=== PATIENT | female | born 2000 | race Caucasian/White ===

== ENCOUNTER 2021-02-03 14:27 | Emergency (ER) | payer OTHER, SELFPAY ==
[2021-02-03 14:40] VITALS: BP 127/72; PULSE 85; RESP 16; TEMP 37.2; O2SAT 99
--- NOTE | 2021-02-03 15:10 | ED.GENADULT ---
HPI - General Adult General Chief complaint: Dental/Oral Stated complaint: tooth pain Source: patient Mode of arrival: ambulatory Limitations: no limitations History of Present Illness HPI narrative: Patient is a 20-year-old female who is 8 weeks that presents to the urgent care via POV for evaluation of dental pain located surrounding left wisdom tooth that has been present for 2 days. Additionally, she reports swelling and erythema and left-sided facial swelling. Pain is intermittent and sharp/throbbing in nature. Tylenol initially provided relief and now is providing none. Nothing worsens symptoms. Patient does not have a dentist although reached out to TRANSMISSIONS SYSTEMS OPERATOR who recommended antibiotics prompting today's visit. Related Data Home Medications Medication Instructions Recorded Confirmed No Home Medications 02/03/21 02/03/21 Allergies Allergy/AdvReac Type Severity Reaction Status Date / Time No Known Allergies Allergy Verified 02/03/21 14:34 Review of Systems Review of Systems: Denies poor dentition, abscess, and drug use. Pertinent negatives fever, chills, sweats, poor p.o. intake, change in appetite, recent weight loss, malaise, headache, dizziness, skin color changes, lymphadenopathy, ear pain/drainage, nasal drainage/congestion, hearing loss, tinnitus, vertigo, inability to swallow, drooling, sore throat, nausea, vomiting, sob, chest pain, and heart palpitations/murmurs. PMFSH Comments I have reviewed and agree with the patient's past medical, surgical, social, and family hx as documented by the RN. There is no relevant family history pertinent to the presenting complaint. Exam Narrative: GENERAL: Well-appearing, well-nourished, and in no acute distress. HEAD: Normocephalic, atraumatic. No sinus tenderness or facial swelling. NECK: Supple. No lymphadenopathy or nuchal rigidity. CHEST: Lung sounds are clear to auscultation in bilateral lung schroeder. No respiratory distress. No evidence of cough upon examination. HEART: Regular rate and rhythm. No murmurs, gallops, or rubs heard. Normal peripheral pulses. Eyes: PERRLA and EOMI. Bilateral conjunctiva with erythema. Normal sclera, eyelids, and eyelashes. Periorbital areas without swelling, erythema, and warmth. No drainage appreciated. ENT: Ears: TMs pearly ghotra. No bulging, erythema, or fluid appreciated. External auditory canals are Nose: Nares clear, no rhinorrhea or epistaxis. No swelling or erythema. Throat/Mouth: No evidence of swelling, erythema, exudate, peritonsillar mass, lesions, ulcers or drooling. Uvula is midline and without erythema and swelling. Mucous membranes moist. Voice and breath odor normal. Moderate erythema and swelling noted tooth number 17. no evidence of dental abscess, dental carries, avulsion, or fractured teeth. EXTREMITIES: Normal range of motion. No edema. SKIN: Warm, dry, no rash. No skin color changes. Excellent turgor. NEURO: No focal deficits. Alert and oriented x3. Course Vital Signs Vital signs: Vital Signs Temperature 99.0 F 02/03/21 14:40 Pulse Rate 85 02/03/21 14:40 Respiratory Rate 16 02/03/21 14:40 Blood Pressure 127/72 02/03/21 14:40 Pulse Oximetry 99 02/03/21 14:40 Temperature 99.0 F 02/03/21 14:40 Pulse Rate 85 02/03/21 14:40 Respiratory Rate 16 02/03/21 14:40 Blood Pressure 127/72 02/03/21 14:40 Pulse Oximetry 99 02/03/21 14:40 Reviewed Medical Decision Making Differential Diagnosis Differential Diagnosis: Abscess, cellulitis, dental caries Medical Records Medical records reviewed: Yes I reviewed the external patient's medical records. Vital Signs Vital Signs: Vital Signs Temperature 99.0 F 02/03/21 14:40 Pulse Rate 85 02/03/21 14:40 Respiratory Rate 16 02/03/21 14:40 Blood Pressure 127/72 02/03/21 14:40 Pulse Oximetry 99 02/03/21 14:40 Temperature 99.0 F 02/03/21 14:40 Pulse Rate 85 02/03/21 14:40 Respiratory Rate 16
== END 2021-02-03 15:26 | disposition home or self-care (01) ==
PROVIDERS: Emergency Provider Nurse Practitioner Family
DX: K04.7 Periapical abscess without sinus (principal)
CPT/HCPCS: 99203; G0463

== ENCOUNTER 2022-01-25 15:23 | Emergency (ER) | payer OTHER, SELFPAY ==
--- NOTE | 2022-01-25 15:25 | ED.DENTAL ---
HPI - Dental/Oral General Chief complaint: Ear Stated complaint: Dental Pain Time Seen by Provider: 01/25/22 15:40 Source: patient Mode of arrival: ambulatory Limitations: no limitations History of Present Illness HPI Narrative: Ms. Lyon is a 21-year-old female patient presenting to clinic today with complaints of dental pain. She reports she is having pain to the right ear that is radiating down into the right jaw. Symptoms have been going on for 1-2 days. She thinks she may have a dental infection. Related Data Allergies Allergy/AdvReac Type Severity Reaction Status Date / Time No Known Allergies Allergy Verified 01/25/22 15:38 Review of Systems Review of Systems: Pertinent positives per HPI. Patient denies any fever, chills, rash, headache, visual changes, dizziness, cough, runny nose, sore throat, shortness of breath, chest pain, palpitations, nausea, vomiting, diarrhea, constipation, abdominal pain, or any urinary issues. PMFSH Comments At the time of my signature, I reviewed and agree with the nursing past medical, surgical, social, and family history. There is no relevant family history pertinent to the patient complaint. Exam Narrative: General: Well-developed, well nourished, in no apparent distress Head: Normocephalic, atraumatic Eyes: Pupils equally round and reactive to light bilaterally, EOM intact, sclera and conjunctive clear, no discharge, lids normal Ears: left TM intact and clear, right TM intact, bulging, red, with blood an and external ear canal swelling noted in the right ear. left ear canal clear, no drainage, grossly hearing normal. Nose: Nares patent, clear nasal discharge, no inflammation, no sinus tenderness. Mouth: Oropharynx without lesions or masses, good dentition, MMM. Neck: Supple, trachea midline, no enlargement of anterior or posterior cervical nodes, no thyroid masses or goiter palpable. Cardio: Regular rate and rhythm, s1 and s2 normal, no murmur appreciated. Resp: Clear to auscultation bilaterally anteriorly and posteriorly, no rhonchi, rales, wheezing or rubs Course Course Emergency Course: Portions of this record may have been created with voice recognition software. Level of Care: Express Care Visit Vital Signs Vital signs: Vital Signs Temperature 36.8 C 01/25/22 15:40 Pulse Rate 85 01/25/22 15:40 Respiratory Rate 16 01/25/22 15:40 Blood Pressure 152/82 H 01/25/22 15:40 Pulse Oximetry 100 01/25/22 15:40 Oxygen Delivery Room Air 01/25/22 15:40 Temperature 36.8 C 01/25/22 15:40 Pulse Rate 85 01/25/22 15:40 Respiratory Rate 16 01/25/22 15:40 Blood Pressure 152/82 H 01/25/22 15:40 Pulse Oximetry 100 01/25/22 15:40 Oxygen Delivery Room Air 01/25/22 15:40 Vital signs reviewed MDM - Dental/Oral MDM Narrative Medical decision making narrative: at the time of visit patient is resting comfortably on the exam table. I suspect that the patient has otitis media, otitis externa the right ear. Will send a prescription for amoxicillin and ofloxacin ear drops. Supportive measures were discussed with the patient she voiced understanding discharge instructions and agrees to treatment plan. Differential Diagnosis Differential diagnosis: Likely other ( Otitis media, otitis externa, eustachian tube dysfunction, dental infection) Discharge Plan Discharge Clinical Impression: Otitis media, Otitis externa Patient Disposition: Home, Self-Care Condition: Stable Instructions: Antibiotic Form, Ear Infection (ED) Additional Instructions: Take any prescribed medications only as directed- amoxicillin and ofloxacin Tylenol/motrin as needed for pain May use heating pad to alleviate pain Avoid bottle propping if ear infection in . If you get recurrent ear infections it may be warranted to follow up with ENT. Follow up with your PCP in 3-5 days if symptoms persist. Prescriptions: New amoxicillin 875 mg t
[2022-01-25 15:40] VITALS: BP 152/82; PULSE 85; RESP 16; TEMP 36.8; O2SAT 100
== END 2022-01-25 15:49 | disposition home or self-care (01) ==
PROVIDERS: Emergency Provider Nurse Practitioner Family
DX: H66.91 Otitis media, unspecified, right ear (principal); H60.91 Unspecified otitis externa, right ear
CPT/HCPCS: 99213; G0463

== ENCOUNTER 2022-06-02 14:49 | Emergency (ER) | payer OTHER, SELFPAY ==
--- NOTE | ~2022-06-02 | XR_ITS ---
EXAMINATION: XR abdomen/kub 1V INDICATION: Right flank pain TECHNIQUE: Supine views of the abdomen were obtained on 2 radiographs. COMPARISON: None FINDINGS: Bowel contents project over the kidneys limiting sensitivity for renal stones. No urolithia sis is identified. A moderate volume of colonic stool is present. IMPRESSION: 1. No radiographic correlate for the patient's symptoms. Reviewed, dictated and finalized at location F.
[2022-06-02 14:54] VITALS: BP 129/84; PULSE 83; RESP 16; TEMP 36.9; O2SAT 100
--- NOTE | 2022-06-02 15:03 | ED.FEMALEGU ---
HPI - Female Genitourinary General Chief complaint: Back Pain/Injury Stated complaint: lower back pain Time Seen by Provider: 06/02/22 15:04 Source: patient and RN notes reviewed Mode of arrival: ambulatory Limitations: no limitations History of Present Illness HPI Narrative: 22-year-old female presents concern for right flank pain that started today. Reports it started suddenly, it of the flows. Reports right now is a 2/10. Reports that it is worse at 7/10. Reports the pain up some flows without exacerbating or relieving factors. She denies dysuria, frequency, urgency, abdominal pain. Reports an episode of nausea today. MD elicited complaint: flank pain Related Data Home Medications Medication Instructions Recorded Confirmed 06/02/22 Allergies Allergy/AdvReac Type Severity Reaction Status Date / Time No Known Allergies Allergy Verified 06/02/22 14:59 Review of Systems Review of Systems: CONSTITUTIONAL: Denies malaise, chills, sweats, or fever. CARDIOVASCULAR: Denies chest pain, palpitations, or edema. RESPIRATORY: Denies cough or dyspnea. GASTROINTESTINAL: Denies abdominal pain, nausea, vomiting, diarrhea GENITOURINARY: Denies dysuria, frequency, urgency, suprapubic pressure. Denies flank pain or hematuria. Reports right flank pain SKIN: Denies rash or itching. MUSCULOSKELETAL: Denies back pain or myalgia. All systems reviewed & are unremarkable except as noted in HPI and below PMFSH Comments At time of signature, agree with nursing past medical, surgical, social and family history. There is no relevant family history pertinent to the presenting complaint Exam Narrative: GENERAL: Well-appearing, well-nourished, and in no acute distress. HEAD: Normocephalic. EYES: PERRLA, conjunctivae clear. NECK: Supple. No lymphadenopathy CHEST: Clear to auscultation. No respiratory distress. HEART: Regular rate and rhythm. ABDOMEN: Soft, nontender upon palpation, nondistended, normal active bowel sounds, no palpable or pulsatile masses, no guarding. No CVA tenderness SKIN: Warm, dry, no rash. NEURO: Alert and oriented x3. PSYCH: Normal mood and affect Course Course Emergency Course: Discussed x-ray findings with patient, discussed possible diagnosis including kidney stones, will treat the patient presumptively for kidney stone pending urology follow-up Patient is aware of, understands and agrees to treatment plan. Anticipatory guidance given. Patient agrees to follow-up as directed and is aware of reasons to seek care at the emergency department. Portions of this record may have been created with voice recognition software Level of Care: Express Care Visit Vital Signs Vital signs: Vital Signs Temperature 98.4 F 06/02/22 14:54 Pulse Rate 83 06/02/22 14:54 Respiratory Rate 16 06/02/22 14:54 Blood Pressure 129/84 06/02/22 14:54 Pulse Oximetry 100 06/02/22 14:54 Oxygen Delivery Room Air 06/02/22 14:54 Temperature 98.4 F 06/02/22 14:54 Pulse Rate 83 06/02/22 14:54 Respiratory Rate 16 06/02/22 14:54 Blood Pressure 129/84 06/02/22 14:54 Pulse Oximetry 100 06/02/22 14:54 Oxygen Delivery Room Air 06/02/22 14:54 Reviewed. MDM - Female Genitourinary MDM Narrative Medical decision making narrative: Exam findings and UA show no acute concerns or changes; patient is non-toxic appearing and is in no distress. Patient is appropriate for outpatient treatment and follow-up. Differential Diagnosis Differential diagnosis: Likely urinary tract infection, cystitis and other (Nephrolithiasis, pyelonephritis) Imaging Data My impression: Images reviewed, interpreted by radiologist, agree, see report. Radiologist's impression: EXAMINATION: XR abdomen/kub 1V INDICATION: Right flank pain TECHNIQUE: Supine views of the abdomen were obtained on 2 radiographs. COMPARISON: None FINDINGS: Bowel contents project over the kidneys limiting sensitivity for renal stones.
== END 2022-06-02 15:48 | disposition home or self-care (01) ==
PROVIDERS: Emergency Provider Nurse Practitioner
DX: R10.9 Unspecified abdominal pain (principal)
CPT/HCPCS: 74018; 81003; 87086; 99213; G0463

== ENCOUNTER 2022-08-15 09:01 | Emergency (ER) | payer BC, OTHER, SELFPAY ==
--- NOTE | 2022-08-15 09:03 | ED.DENTAL ---
HPI - Dental/Oral General Chief complaint: Dental/Oral Stated complaint: Dental abscess; headache Time Seen by Provider: 08/15/22 09:03 Source: patient Mode of arrival: ambulatory Limitations: no limitations History of Present Illness HPI Narrative: Destiney is a 22-year-old female patient presenting to the clinic today with complaints of possible dental abscess and sinus pressure x 2-3 days She reports she is having a foul taste in her mouth and some dental pain to the left upper posterior molars/wisdom teeth. No known fever or chills. Related Data Allergies Allergy/AdvReac Type Severity Reaction Status Date / Time No Known Allergies Allergy Verified 08/15/22 09:10 Review of Systems Review of Systems: Pertinent positives per HPI. Patient denies any fever, chills, rash, visual changes, dizziness, cough, runny nose, sore throat, shortness of breath, chest pain, palpitations, nausea, vomiting, diarrhea, constipation, abdominal pain, or any urinary issues. PMFSH Comments At the time of my signature, I reviewed and agree with the nursing past medical, surgical, social, and family history. There is no relevant family history pertinent to the patient complaint. Exam Narrative: General: Well-developed, well nourished, in no apparent distress Head: Normocephalic, atraumatic Eyes: Pupils equally round and reactive to light bilaterally, EOM intact, sclera and conjunctive clear, no discharge, lids normal Ears: TMs intact and clear, ear canals clear, no drainage, grossly hearing normal. Nose: Nares patent, no discharge, no inflammation, no sinus tenderness. Mouth: Oropharynx without lesions or masses, poor dentition, MMM. Tender to palpation to the right upper posterior molar-possibly impacted wisdom tooth Neck: Supple, trachea midline, no enlargement of anterior or posterior cervical nodes, no thyroid masses or goiter palpable. Cardio: Regular rate and rhythm, s1 and s2 normal, no murmur appreciated. Resp: Clear to auscultation bilaterally anteriorly and posteriorly, no rhonchi, rales, wheezing or rubs Course Course Emergency Course: Portions of this record may have been created with voice recognition software. Level of Care: Express Care Visit Vital Signs Vital signs: Vital signs reviewed MDM - Dental/Oral MDM Narrative Medical decision making narrative: At the time of visit patient is resting comfortably on the exam table. Will place the patient on Augmentin. Suspicious for impacted wisdom tooth with infection. Supportive measures were discussed with the patient she voiced understanding of discharge instructions and agrees to treatment plan Differential Diagnosis Differential diagnosis: Likely gingival abscess, dental caries, toothache, dental abscess and fracture of tooth Discharge Plan Discharge Clinical Impression: Toothache Patient Disposition: Home, Self-Care Condition: Stable Instructions: Antibiotic Form, Toothache (ED) Additional Instructions: Take Augmentin as prescribed Follow-up with your dentist as soon as possible May take Tylenol/Motrin as needed for pain or fever Follow-up with your PCP as needed Prescriptions: New amoxicillin-pot clavulanate 875-125 mg tablet 1 tablet PO Q12H 10 Days Qty: 20 0RF Follow-up/Referrals: PHYSICIAN,AGRICULTURAL SERVICE WORKER [Primary Care Provider] - Time of Disposition: 09:17 Quality NIHSS Nursing Documentation ED NIHSS nursing documentation: reviewed/agree
[2022-08-15 09:11] VITALS: BP 118/58; PULSE 103; RESP 14; TEMP 36.9; O2SAT 100
== END 2022-08-15 09:22 | disposition home or self-care (01) ==
LOC: EXPCOLL 09:06
PROVIDERS: Emergency Provider Nurse Practitioner Family
DX: K02.9 Dental caries, unspecified (principal)
CPT/HCPCS: 99213; G0463

== ENCOUNTER 2022-12-03 13:06 | Emergency (ER) | payer OTHER, SELFPAY ==
--- NOTE | 2022-12-03 13:08 | ED.DENTAL ---
HPI - Dental/Oral General Chief complaint: Dental/Oral Stated complaint: Dental Pain Time Seen by Provider: 12/03/22 13:28 Mode of arrival: ambulatory Limitations: no limitations History of Present Illness HPI Narrative: 22 year old female presents with concern for left lower dental pain that started 2 days ago. She denies any injury to the tooth, jaw swelling, cheek swelling. Denies fever trouble swallowing. She is 11 weeks . She has been taking Tylenol Complaint: tooth pain Related Data Allergies Allergy/AdvReac Type Severity Reaction Status Date / Time No Known Allergies Allergy Verified 12/03/22 13:13 Review of Systems Review of Systems: CONSTITUTIONAL: Denies malaise, chills, sweats, or fever. EYES: Denies visual changes ENT: Denies rhinorrhea, congestion, sinus pain, otalgia or sore throat. Reports left lower dental pain CARDIOVASCULAR: Denies chest pain, palpitations RESPIRATORY: Denies cough or dyspnea. SKIN: Denies rash or itching. MUSCULOSKELETAL: Denies myalgia. NEUROLOGIC: Denies numbness, weakness, or headache. All systems reviewed & are unremarkable except as noted in HPI and below PMFSH Comments At time of signature, agree with nursing past medical, surgical, social and family history. There is no relevant family history pertinent to the presenting complaint Exam Narrative: GENERAL: Well-appearing, well-nourished, and in no acute distress. HEAD: Normocephalic, atraumatic. EYES: PERRLA, sclera clear ENT: Nares clear, turbinates pink, no rhinorrhea or epistaxis. Mucous membranes moist. TM pearly cruz with sharp light reflex bilaterally; no tragal tenderness. Oropharynx without erythema or lesions. Tonsils not enlarged and without exudate. No missing teeth, broken teeth. Aleyda noted tooth #19 NECK: Supple. No lymphadenopathy. CHEST: No respiratory distress. Speaks in full sentences. HEART: Regular rate and rhythm. SKIN: Warm, dry, no visible rash. NEURO: Alert and oriented x3. PSYCH: Normal mood and affect Course Course Emergency Course: Patient is aware of diagnosis, understands and agrees to treatment plan. Anticipatory guidance given. Patient agrees to follow-up as directed and is aware of reasons to seek care at the emergency department. Portions of this record may have been created with voice recognition software Level of Care: Express Care Visit Vital Signs Vital signs: Reviewed. [facility] - Dental/Oral MDM Narrative Medical decision making narrative: Patients pain and complaint coupled with physical findings are consistant with dentalgia. There are no focal signs of space occupying lesions that are compromising to the airway; no dysphagia, odynophagia, dysphonia, or dyspnea. No uvular deviation or soft palate edema. Patient is non-toxic appearing. The floor of the mouth is soft with no signs of Eric's Angina; no induration below mandible, no neck pain. Patient is without trismus or drooling and able to swallow secretions. Patient is felt appropriate for discharge home with dental follow up. Differential Diagnosis Differential diagnosis: Likely gingival abscess, dental caries, toothache, dental abscess, fracture of tooth and aphthous ulcer Critical Care Time Critical Care Time Critical Care Time: No Discharge Plan Discharge Clinical Impression: Toothache Patient Disposition: Home, Self-Care Condition: Stable Instructions: Antibiotic Form, Toothache (ED) Additional Instructions: Take antibiotic as directed Avoid temperature extremes May apply heat or ice to the face Gentle brushing and flossing Alternate Tylenol and ibuprofen as needed for pain Follow-up with the dentist as soon as possible Prescriptions: New amoxicillin-pot clavulanate 875-125 mg tablet 1 tablet PO Q12H 10 Days Qty: 20 0RF Follow-up/Referrals: UNKNOWN,DOCTOR [Non-Staff] - Time of Disposition: 13:34
[2022-12-03 13:14] VITALS: BP 137/81; PULSE 98; RESP 18; TEMP 37.2; O2SAT 100
== END 2022-12-03 13:38 | disposition home or self-care (01) ==
PROVIDERS: Emergency Provider Nurse Practitioner
DX: K08.89 Other specified disorders of teeth and supporting structures (principal)
CPT/HCPCS: 99213; G0463

== ENCOUNTER 2023-03-25 09:56 | Emergency (ER) | payer OTHER, SELFPAY ==
[2023-03-25 10:03] VITALS: BP 121/61; PULSE 92; RESP 20; TEMP 37.2; O2SAT 100
[2023-03-25 10:09] VITALS: BP 121/61; PULSE 92; RESP 20; TEMP 37.2; O2SAT 100
--- NOTE | 2023-03-25 10:12 | ECG_ITS ---
Measurements Intervals [place] Rate: 84 P: 41 KS: 143 QRS: 15 QRSD: 87 T: 31 QT: 349 QTc: 415 Interpretive Statements SINUS RHYTHM NORMAL ECG NO PREVIOUS ECG AVAILABLE FOR COMPARISON Electronically Signed On 03-25-2023 15:12:57 [employer]OCK BROKER SUPERVISOR by Shahab Gray D.O.
--- NOTE | 2023-03-25 10:19 | ED.GENADULT ---
HPI - General Adult General Chief complaint: Chest Pain Stated complaint: Chest Wall Pain Time Seen by Provider: 03/25/23 10:19 Source: patient Mode of arrival: ambulatory Limitations: no limitations History of Present Illness HPI narrative: 23 yo F presents with c/o pain to sternum starting last night. worse with movement and on palpation. Denies injury. Pain was intermittent when first starting but now constant. Approx. 26 wks . Has had indigestion in the past and states does not feel it is reflux. Has not taken any OTC meds to treat pain. No SOB, difficulty breathing. Denies dizziness, lightheaded, fatigue, URI symptoms, N/V. Describes as ache . No stabbing, sharp or pressure. All systems reviewed and negative except as noted above. Related Data Allergies Allergy/AdvReac Type Severity Reaction Status Date / Time No Known Allergies Allergy Verified 03/25/23 10:07 Review of Systems Review of Systems: CONSTITUTIONAL: Denies fever, chills, or sweats. EYES: Denies visual changes, redness, or discharge. ENT: Denies rhinorrhea, congestion, sore throat, or otalgia. CARDIOVASCULAR: Denies chest pain, palpitations, or edema. RESPIRATORY: Denies cough or dyspnea. GASTROINTESTINAL: Denies abdominal pain, nausea, vomiting, or diarrhea. GENITOURINARY: Denies dysuria or hematuria. SKIN: Denies rash or itching. MUSCULOSKELETAL: Denies back pain, joint pain, or myalgia. Reports musculoskeletal chest pain, sternum NEUROLOGIC: Denies headache, numbness, or weakness. PSYCHIATRIC: Denies anxiety or depression. All other systems reviewed are negative, except as documented in HPI. PMFSH Comments At time of signature, agree with nursing past medical, surgical, social and family history. There is no relevant family history pertinent to the presenting complaint. Exam Narrative: GENERAL: This is a well-nourished, well-developed patient, in no apparent distress. HEAD: normocephalic, atraumatic. EYES: PERRL. Sclera clear/white. Vision is grossly intact. EARS: External ears normal NOSE: External nose normal NECK: Neck supple, non-tender without lymphadenopathy, masses or thyromegaly. CARDIOVASCULAR: Regular rate and rhythm without murmurs, gallops, or rubs. RESPIRATORY: Clear to auscultation. Breath sounds equal bilaterally. No wheezes, rales, or rhonchi. MUSCULOSKELETAL: Tenderness on palpation to sternum and upper aspect of chest. No bruising, swelling noted. SKIN: warm, Dry, intact with no suspicious lesions or rash, good texture and turgor. NEURO: awake, alert, and oriented to person, place and time. There were no obvious focal neurologic abnormalities. EXTREMITIES: No joint tenderness, effusion, or edema noted. Course Course Level of Care: Express Care Visit Vital Signs Vital signs: Vital Signs Temperature 37.2 C 03/25/23 10:03 Pulse Rate 92 03/25/23 10:03 Respiratory Rate 03/25/23 10:03 Blood Pressure 121/61 03/25/23 10:03 Pulse Oximetry 100 03/25/23 10:03 Oxygen Delivery Room Air 03/25/23 10:03 Temperature 37.2 C 03/25/23 10:09 Pulse Rate 92 03/25/23 10:09 Respiratory Rate 03/25/23 10:09 Blood Pressure 121/61 03/25/23 10:09 Pulse Oximetry 100 03/25/23 10:09 Oxygen Delivery Room Air 03/25/23 10:10 Reviewed Medical Decision Making MDM Narrative Medical decision making narrative: EKG normal sinus rhythm. HR 84, no ST changes lungs clear to auscultation. HR and EKG normal. musculoskeletal chest tenderness on palpation, worse with movement. recommend tylenol and follow up with diagnostic tech. Offer to transfer patient to ear today to further evaluate with labs but patient did not feel was necessary. Stated that she needed to go home and take care for 2 younger children. Instructed to go to ER for shortness of breath, worsening of pain Patient is aware of diagnosis, understands and agrees to treatment plan. Anticipatory guidance given. Patient agrees to follow
== END 2023-03-25 10:31 | disposition home or self-care (01) ==
PROVIDERS: Emergency Provider Nurse Practitioner Family; PCP Internal Medicine Cardiovascular Disease
DX: O99.891 Other specified diseases and conditions complicating pregnancy (principal); Z3A.26 26 weeks gestation of pregnancy; R07.89 Other chest pain
CPT/HCPCS: 93005; 99213; G0463

== ENCOUNTER 2024-01-06 17:24 | Emergency (ER) | payer OTHER, SELFPAY ==
[2024-01-06 17:37] VITALS: BP 139/78; PULSE 96; RESP 16; TEMP 36.9; O2SAT 99
--- NOTE | 2024-01-06 17:51 | ED.GENADULT ---
HPI - General Adult General Chief complaint: Ear Stated complaint: right side ear pain,jaw,neck Source: patient Mode of arrival: ambulatory Limitations: no limitations History of Present Illness HPI narrative: Patient presents for evaluation of right ear pain. She indicates she has some chronic muffled hearing on the right secondary to recurrent ear infections. She has noted some bloody and thick yellow drainage from her right ear for the past week. She has been applying ice to the right ear in taking Tylenol and ibuprofen for symptoms. No fever, chills, nausea, vomiting. She is currently Related Data Allergies Allergy/AdvReac Type Severity Reaction Status Date / Time No Known Allergies Allergy Verified 01/06/24 17:26 Review of Systems Review of Systems: CONSTITUTIONAL: Denies fever, chills, or sweats. EYES: Denies visual changes, redness, or discharge. ENT: Reports right ear pain with drainage CARDIOVASCULAR: Denies chest pain, palpitations, or edema. RESPIRATORY: Denies cough or dyspnea. GASTROINTESTINAL: Denies abdominal pain, nausea, vomiting, or diarrhea. GENITOURINARY: Denies dysuria or hematuria. SKIN: Denies rash or itching. MUSCULOSKELETAL: Denies back pain, joint pain, or myalgia. NEUROLOGIC: Denies headache, numbness, dizziness, or weakness. PSYCHIATRIC: Denies anxiety or depression. PMFSH Past Medical History Medical History No pertinent past medical history Surgical History Surgical History No pertinent past surgical history Family History Family History Mother Family history non-contributory Social History Social History Substance use: never Living arrangements: with family Gender identity (if verbalized by the patient): Female Sexual Orientation (if Verbalized by the Patient): Straight or Heterosexual Exam Narrative: GENERAL: Well-appearing, well-nourished, and in no acute distress. HEAD: Normocephalic, atraumatic. EYES: PERRLA and EOMI. ENT: Nares clear, no rhinorrhea or epistaxis. Mucous membranes moist. Oropharynx without tonsillar hypertrophy exudate or other lesions. right tympanic membrane is erythematous and there is purulent drainage in the right ear canal NECK: Supple. No adenopathy or masses. No carotid bruits or JVD CHEST: Clear to auscultation. No respiratory distress. No wheezes rales or rhonchi HEART: Regular rate and rhythm. No murmur heard. Normal peripheral pulses. ABDOMEN: Soft, nontender, nondistended, normal active bowel sounds. EXTREMITIES: Normal range of motion. No edema. SKIN: Warm, dry, no rash. NEURO: No focal deficits. Alert and oriented x3. PSYCH: Normal mood and affect. Course Course Emergency Course: This is a 23-year-old female who presented for evaluation right ear pain and drainage. She has evidence of otitis media on exam. I suspect she has rupture of tympanic membrane. Will discharge with Augmentin and ofloxacin. Advise she monitor her while . Follow-up with primary provider. Go to the ER for worsening symptoms. Patient in agreement with plan of care. Level of Care: Express Care Visit Vital Signs Vital signs: Vital Signs Temperature 36.9 C 01/06/24 17:37 Pulse Rate 96 01/06/24 17:37 Respiratory Rate 16 01/06/24 17:37 Blood Pressure 139/78 01/06/24 17:37 Pulse Oximetry 99 01/06/24 17:37 Oxygen Delivery Room Air 01/06/24 17:37 Temperature 36.9 C 01/06/24 17:37 Pulse Rate 96 01/06/24 17:37 Respiratory Rate 16 01/06/24 17:37 Blood Pressure 139/78 01/06/24 17:37 Pulse Oximetry 99 01/06/24 17:37 Oxygen Delivery Room Air 01/06/24 17:37 Medical Decision Making Vital Signs Vital Signs: Vital Signs Temperature 36.9 C 01/06/24 17:37 Pulse Rate 96 01/06/24 17:37 Respiratory Rate 16 01/06/24 17:37 Blood Pressure 139/78 01/06/24 17:37 Pulse Oximetry 99 01/06/24 17:37 Oxygen Delivery Room Air 01/06/24 17:37 Temperature 36.9 C 01/06/24 17:37 Pulse Rate 96 01/06/24 17:37 Respiratory Rate 16 01/06/24 17:37 Blood Pressure 139/78 01/06/24 17:37 Pulse Oximetry 99 01/06/24 17:37 Oxygen Delivery Room Air 01/06/24 17:37 Discharge Plan Discharge Clinical Impression: Otitis media Patient Disposition: Home, Self-Care Condition: Stable Instructions: Antibiotic Form, Ear Infection (GEN) Patient Language: Pashto Prescriptions: New amoxicillin-pot clavulanate 875-125 mg tablet 1 tablet PO Q12H Qty: 20 0RF ofloxacin 0.3 % drops 10 drp RIGHT EAR DAILY 7 Days Qty: 5 0RF Follow-up/Referrals: Honorio Vickers MD [Physician] - Time of Disposition: 17:50
== END 2024-01-06 17:55 | disposition home or self-care (01) ==
PROVIDERS: Emergency Provider Nurse Practitioner
DX: H66.91 Otitis media, unspecified, right ear (principal)
CPT/HCPCS: 99213; G0463

== ENCOUNTER 2024-04-12 15:03 | Emergency (ER) | payer OTHER, SELFPAY ==
[2024-04-12 15:29] VITALS: BP 137/109; PULSE 83; RESP 16; TEMP 36.9; O2SAT 99
--- NOTE | 2024-04-12 16:53 | ED.URI ---
HPI - URI/Sore Throat General Chief Complaint: Upper Respiratory Infection Stated Complaint: swelling on tonsil left side,sore throat Time Seen by Provider: 04/12/24 16:53 Source: patient, RN notes reviewed and old records reviewed Mode of arrival: ambulatory Limitations: no limitations History of Present Illness HPI Narrative: Patient presents with complaints of sore throat for about 1 week. She reports that she has had a little bit of postnasal drainage. She denies any fever, chills, sweats. She has no difficulty eating or drinking. She denies any injury or trauma. She is not in any distress, she is managing: Secretions, no drooling or stridor Related Data Home Medications ?Medication ?Instructions ?Recorded ?Confirmed ?Last Taken ?Type No Home Medications 04/12/24 04/12/24 Unknown History Allergies Allergy/AdvReac Type Severity Reaction Status Date / Time No Known Allergies Allergy Verified 04/12/24 16:54 Review of Systems Review of Systems: All systems reviewed & are unremarkable except as noted in HPI and below Constitutional: Constitutional: Reports no additional constitutional complaints ENT: Reports system reviewed and no additional complaints, except as documented and Reports sore throat Cardiovascular: Cardiovascular: Reports no additional cardiovascular complaints Respiratory: Respiratory: Reports no additional respiratory complaints Gastrointestinal: Gastrointestinal: Reports no additional gastrointestinal complaints [facility] Past Medical History Medical History No pertinent past medical history Surgical History Surgical History No pertinent past surgical history Family History Family History Mother Family history non-contributory Social History Social History Substance use: never Living arrangements: with family Gender identity (if verbalized by the patient): Female Sexual Orientation (if Verbalized by the Patient): Straight or Heterosexual Comments At the time of my signature, I reviewed and agree with the nursing past medical, surgical, social, and family history. There is no relevant family history pertinent to the patient complaint. Exam Const: General: cooperative, no acute distress, alert and awake Orientation/consciousness: oriented to person, oriented to place and oriented to time HENMT: Head: normal to inspection Ears: TM's normal bilaterally Mouth: Yes moist mucous membranes Throat: posterior oropharynx abnormal erythema Resp: Effort & Inspection: normal respiratory effort and able to speak in complete sentences Auscultation: clear to auscultation bilaterally, no crackles, no rales, no rhonchi and no wheezes Cardio: Palpation: normal PMI Rate: regular rate Rhythm: regular rhythm Heart sounds: S1 normal heart sound present and S2 normal heart sound present Neuro: General: oriented to person, oriented to place and oriented to time Cranial nerves: Yes CN's II-XII intact bilaterally Psych: Appearance: grossly normal Thought process: Normal thought process present Insight: Good insight present (Psych) Judgement: Good judgement present (Psych) Course Course Level of Care: Express Care Visit Vital Signs Vital signs: Vital Signs Temperature 98.5 F 04/12/24 15:29 Pulse Rate 83 04/12/24 15:29 Respiratory Rate 16 04/12/24 15:29 Blood Pressure 137/109 H 04/12/24 15:29 Pulse Oximetry 99 04/12/24 15:29 Oxygen Delivery Room Air 04/12/24 15:29 Temperature 98.5 F 04/12/24 15:29 Pulse Rate 83 04/12/24 15:29 Respiratory Rate 16 04/12/24 15:29 Blood Pressure 137/109 H 04/12/24 15:29 Pulse Oximetry 99 04/12/24 15:29 Oxygen Delivery Room Air 04/12/24 15:29 Reviewed MDM - URI/Sore Throat MDM Narrative Medical decision making narrative: Reassuring physical exam. Strep negative, culture pending. Patient nontoxic appearing, stable for discharge home. Discharge instructions reviewed with patient, as well as provided in writing per nursing staff. The instructions also include specific and strict return/GO TO THE ER as well as f/u information. All questions have been answered, and the patient deny any further questions with discharge and discharge plan. Some parts of this dictation were generated by voice recognition software and may contain typographical and/or grammatical inaccuracies. Differential Diagnosis Differential diagnosis: Likely upper respiratory infection, otitis media, viral infection and pharyngitis Medical Records Attestation: I reviewed the patient's medical records. Lab Data Attestation: I reviewed the patient's lab results. Discharge Plan Discharge Clinical Impression: Upper respiratory infection Qualifiers: URI type: unspecified viral URI Qualified Code(s): J06.9 - Acute upper respiratory infection, unspecified Patient Disposition: Home, Self-Care Condition: Stable Instructions: Antibiotic Form, Cold Symptoms (ED) Patient Language: Argentine Prescriptions: No Action No Home Medications Follow-up/Referrals: PHYSICIAN,BLUE PRINTS TRIMMER [Primary Care Provider] - Time of Disposition: 17:28
[2024-04-12 17:23] LABS: EDSTREPNEGPOS1 Negative (Negative)
[2024-04-12 17:25] LABS: EDSTREPNEGPOS1 Negative (Negative)
== END 2024-04-12 17:30 | disposition home or self-care (01) ==
PROVIDERS: Emergency Provider Nurse Practitioner Family
DX: J02.0 Streptococcal pharyngitis (principal)
CPT/HCPCS: 87081; 87880; 99213; G0463

== ENCOUNTER 2024-05-15 17:01 | Emergency (ER) | payer OTHER, SELFPAY ==
[2024-05-15] VITALS (21 sets, daily range): BP systolic 127–161; BP diastolic 64–89; PULSE 63–92; RESP 8–20; TEMP 36.4; O2SAT 96–100
--- NOTE | ~2024-05-15 | XR_ITS ---
XR chest 1V portable Ordering provider: Hiram Rojo PA-C History: 24 years Female with . chest pain . Comparison: None. FINDINGS: MEDIASTINUM: The cardiac silhouette is not enlarged. LUNGS: No infiltrates, effusions or pneumothorax. OTHER: No free air under the diaphragm. IMPRESSION: No acute cardiopulmonary pathology. Reviewed, dictated and finalized at location A.
--- OUTSIDE RECORDS SUMMARY | 2024-05-15 17:59 | XMS_ITS | Patient Health Summary ---
Author Organization [facility] [employer] Address [address] [place] [address] Care Team Providers Care Fund Manager Name Role Phone A, Unknown Practice Primary Care Provider [phone] Note from [facility],non-owned Affiliates and Associated Physician Practices is amultiple site organization consisting of ambulatory clinics and hospital sitesin [place], [place], [place] and [place]. This disclosure is being madepursuant to the Care Everywhere program and may not contain all information available regarding this patient. Last updated 17.[facility] Social History Tobacco Use Types Packs/Day Years Used Date Smoking Tobacco: Never Assessed Sex and Gender Information Value Date Recorded Sex Assigned at Not on file Gender Identity Not on file Sexual Orientation Not on file Procedures * SONOGRAM - COMPLETE(Performed 03/07/2023) Performed for Third (HCC), 24 weeks gestation of ([facility]), Encounter for follow-upultrasound of anatomy ([facility]) * SONOGRAM - COMPLETE(Performed 02/06/2023) Performed for Third (HCC), Encounter for anatomic survey ([facility]), 20 weeks gestation of ([facility]) Results * SONOGRAM - COMPLETE (03/07/2023 1:48 PM ATLASSIAN ADMINISTRATOR) Only the most recent of2 resultswithin the time period is included. Anatomical Region Laterality Modality Other 03/07/2023 1:48 PM ATLASSIAN ADMINISTRATOR Narrative 03/07/2023 2:39 PM ATLASSIAN ADMINISTRATOR [facility] PHONE: FAX: Pat. Name: DARIANA LYON. No: [id number] Study Date: 03/07/2023 1:48pm , Age: 12 2000, 23 Pregnancies: 3, Para 2 Height: 62 in Weight: 149 lb LMP: 09/20/2022 GA by LMP: 24w0d GA by Base: 24w0d PAMELA: 06/27/2023 GA by US: 23w0d PAMELA: 07/04/2023 GA Selected: 24w0d (LMP) PAMELA: 06/27/2023 Referring MD: Prashanth Cifuentes MD Shop Foreman: Na Galarza, [facility], [facility] CPT4: 10545,46687 BMI: 27.25 Hist/Ind: Incomplete Anatomic Survey NIPT: low risk (female) Short interval MEASUREMENTS & AGE GROWTH EVALUATION Measurement GA Range Srce %for GA Ratios ----- ---- ------- BPD 5.5 cm 22w6d (81y9r-14x5m) Hadl BPD 9% FL/BPD 0.75 (0.71 - 0.87) HC 21.0 cm 23w1d (82r2q-83s6v) Hadl HC 8% FL/AC 0.21 (0.20 - 0.24) AC 19.6 cm 24w2d (77r0i-62e3k) Hadl AC 50% HC/AC 1.07 (1.02 - 1.21) FL 4.1 cm 23w3d (11a4j-63c3x) Hadl FL 20% CI 0.73 (0.70 - 0.86) HL 3.9 cm 23w6d (26u1q-89u6m) Marc HL 47% GA for sonogram 23w0d (62k4a-11t2w) Weight Estimate: based on (BPD,HC,AC,FL) Hadlock Weight: 628 gm (537-720gm) Hadloc : 1lbs, 6oz Normal: 671 gm (503-838gm) Hadloc Wt% 32% for 24w0d Cervix: Approach: transvaginal Heart Rate: 150 bpm Amniotic Fluid Index: 04.9cm (Deepest Pocket) PROCEDURE, TECHNIQUE Technique: transabdominal, transvaginal EVAL, PLACENTA Presentation: cephalic Placenta: posterior Previa: no previa seen Heart Rate: 150 bpm Amniotic Fluid Volume: normal Anatomy!Normal!Abnormal!Suboptimal!Prev. Seen!Comments Cranium ! ! ! ! x ! Mdl (CSP/Thal! ! ! ! x ! Ventricles ! ! ! ! x ! Choroid Plexu! ! ! ! x ! Cerebellum ! ! ! ! x ! Cisterna M. ! ! ! ! x ! Nuchal Fold ! ! ! ! x ! Orbits ! ! ! ! x ! Profile ! ! ! ! x ! Nasal Bone ! ! ! ! x ! Lip ! x ! ! ! ! Spine ! x ! ! ! ! Lungs ! ! ! ! x ! 4 Chamber Hea! ! ! ! x ! LVOT ! ! ! ! x ! RVOT ! ! ! ! x ! 3 Vessel View! ! ! ! x ! 3 Vessel Trac! ! ! ! x ! Cross-over ! ! ! ! x ! Ductal Arch ! ! ! ! x ! Aortic Arch ! ! ! ! x ! Caval View ! ! ! ! x ! Situs ! ! ! ! x ! Diaphragm ! ! ! ! x ! Stomach ! x ! ! ! x ! Bowel ! ! ! ! x ! Kidneys ! x ! ! ! x ! Bladder ! x ! ! ! x ! 3 Vessel Cord! ! ! ! x ! Cord In! ! ! ! x ! Upper Extremi! ! ! ! x ! Hands ! ! ! ! x ! Lower Extremi! ! ! ! x ! Feet ! ! ! ! x ! External Marci! ! ! ! x ! Placental Cor! ! ! ! x ! CLINICAL SUMMARY A single fetus is seen in cephalic presentation. The measurements today are consistent with appropriate growth for the PAMELA provided. The PAMELA selected is based on a prior ultrasound. The amniotic fluid volume is normal. IMPRESSION: Single, live, intrauterine at 24w0d Amniotic fluid volume: within normal limits size is within normal limits Normal-range transvaginal cervical length RECOMMEND: Ultrasound for growth assessment as clinically indicated. Thank you for allowing us the opportunity to care for your patient. shell Clement MD <Electronic Signature> 03/07/2023 02:39pm Kisha FUENTES ORDERABLES Care Teams Fund Manager Relationship Specialty Start Date End Date A, Unknown Practice [address] [place] [address] PCP - General 02/06/23
--- OUTSIDE RECORDS SUMMARY | 2024-05-15 17:59 | XMS_ITS | Referral Summary ---
Author Organization [address] Address [address] [place] [id number] Care Team Providers Care Stamp Pad Finisher Name Role Phone Mariaelena Torres MD Unavailable [phone] No, Physician Primary Care Provider [phone] Allergies No known active allergies Medications [id number]-tmzc-hieeco 6-dha 30 mg iron-1mg -200 mg capsule Take 1 tablet by mouth daily Active ferrous fumarate 325 mg (106 mg iron) tablet Take 1 tablet (325 mg total) by mouth daily with breakfast Active Active Problems No known active problems Social History Tobacco Use Types Packs/Day Years Used Date Smoking Tobacco: Some Days Smokeless Tobacco: Current Alcohol Use Standard Drinks/Week Comments Never 0 (1 standard drink = 0.6 oz pur e alcohol) AUDIT-C Answer Date Recorded Frequency of Alcohol Consumption Never 2019 Average Number of Drinks Not on file 019 Frequency of Binge Drinking Not on file 02/04 Personal Safety Answer Date Recorded Have you ever been in or are you currently in a harmful physical or emotional relationship or is someone making you feel afraid or unsafe? Denies 04/18/2023 Comments No Sex and Gender Information Value Date Recorded Sex Assigned at Not on file Legal Sex Female 8:52 PM WOOD HEEL FLAP TRIMMER Gender Identity Not on file Sexual Orientation Not on file Last Filed Vital Signs Vital Sign Reading Time Taken Comments Blood Pressure 134/69 04/18/2023 7:40 PM WOOD HEEL FLAP TRIMMER Pulse 83 04/18/2023 7:40 PM WOOD HEEL FLAP TRIMMER Temperature 36.9 C (98.4 F) 04/18/2023 7:40 PM WOOD HEEL FLAP TRIMMER Respiratory Rate 18 04/18/2023 7:40 PM WOOD HEEL FLAP TRIMMER Oxygen Saturation 98% 04/18/2023 6:38 PM WOOD HEEL FLAP TRIMMER Inhaled Oxygen Concentration - - Weight 66.2 kg (146 lb) 2019 12:34 PM WOOD HEEL FLAP TRIMMER Height 157.5 cm (5' 2 ) 2019 12:34 PM WOOD HEEL FLAP TRIMMER Body Mass Index 26.7 2019 12:34 PM WOOD HEEL FLAP TRIMMER Plan of Treatment Not on file Insurance [employer] Care Teams Stamp Pad Finisher Relationship Specialty Start Date End Date No, Physician PCP - General 04/18/23 Mariaelena Torres MD [address] [place] [address] Consulting Physician Family Medicine 02/21/19
--- OUTSIDE RECORDS SUMMARY | 2024-05-15 17:59 | XMS_ITS | Referral Summary ---
Author Organization [facility] [employer] Address [address] [place] [address] Care Team Providers Care Spray Drier Name Role Phone A, Unknown Practice Primary Care Provider [phone] Source Comments [facility],non-owned Affiliates and Associated Physician Practices is amultiple site organization consisting of ambulatory clinics and hospital sitesin [place], [place], [place] and [place]. This disclosure is being madepursuant to the Care Everywhere program and may not contain all information available regarding this patient. Last updated 17.[facility] [employer] Social History Tobacco Use Types Packs/Day Years Used Date Smoking Tobacco: Never Assessed Sex and Gender Information Value Date Recorded Sex Assigned at Not on file Gender Identity Not on file Sexual Orientation Not on file Plan of Treatment Not on file Care Teams Spray Drier Relationship Specialty Start Date End Date A, Unknown Practice [address] [place] [id number] PCP - General 02/06/23
--- OUTSIDE RECORDS SUMMARY | 2024-05-15 17:59 | XMS_ITS | Data Portability ---
Author Organization [employer] , [facility] Address [address] [place] [address] Care Team Providers Care Channel Specialist Name Role Phone [facility] Marketing Services Vice President Assessment No assessment recorded. Plan of Treatment Reminders Order Date Submit Date Provider Last Modified By Organization Details Last Modified Time Details Appointments None recorded. Lab glucose tolerance test, post-50G, 1-hour 2023 024 [employer], [address] [place], [address], 4 10:51:18 obstetric screen, serum or blood 2023 [facility]24 [facility] [employer], [address] [place], [address], 4 11:02:16 afp (alpha-feto protein) panel, maternal screen, serum 2022 023 [facility], [address] [place], [address], 3 18:04:21 genetic screen, unspecified specimen 2022 023 KELLEY [facility], [address] [facility] , [place], [address], 3 18:18:49 culture, urine 2022 023 [facility], [address] [facility], [facility] [address], [place], [address], 3 17:20:44 varicella-z corey igg Ab screen, serum 2022 023 [facility], [address], [address], [place], [address], 3 17:20:41 antibody screen, serum or plasma 2022 023 [facility], [address] [place], [address], 3 17:20:42 abo group + rh type, blood 2022 [facility], [address] [place], [address], 3 17:20:43 CT + NG DNA, PCR, unspecified specimen 2022 023 [employer], [address] [place], [address], 3 15:37:16 CBC w/ auto diff 2022 023 [employer], [address] [place], [address], 3 12:03:35 hemoglobin A1c, QN, blood 2022 023 [employer], [address] [place], [address], 3 12:08:45 hemoglobino rosalba profile, blood 2022 023 [facility], [address] [place], [address], 3 17:20:42 obstetric screen + HIV, serum or blood 2022 023 [employer], [address] [place], [address], 13:05:57 aneuploidy risk, chromosome specific circulating cell free (ccf) DNA, maternal serum 2022 023 KELLEY [facility], [address], [place], [address], 01:12:57 Referral None recorded. Procedures None recorded. Surgeries None recorded. Imaging None recorded. Medication Orders None recorded. Patient TargetsNo targets recorded. Patient Instructions Encounter Date Encounter Id Patient Instructions Last Modified By Organization Details Last Modified Time 04/03/2023 [id number] learning about screening for gestational diabetes marco Not available 04/03/2023 11:08:30 Reason for Referral None Reported. Results Created Date Observation Date Name Description Value Unit Range Abnormal Flag Note LastModifiedBy Organization Detail LastModifiedTime 12/21/1912/20/2022 [UNIT Y] PRO Kapoor sickle cell disease/beta -thalassemia /hemoglobino pathies carrier screen NEGATI VE normal Not Available [facility] [address], [place], [address], 12/20/2022 18:18:49 12/21/19 23 12/20/2022 [UNIT Y] PRO Kapoor alpha-thalas semia carrier screen NEGATI VE normal Not Available [facility] [address], [place], [address], 12/20/2022 18:18:49 12/21/19 23 12/20/2022 [UNIT Y] PRO Kapoor cystic fibrosis carrier screen NEGATI VE normal Not Available [facility] [address], [place], [address], 12/20/2022 18:18:49 12/21/19 23 12/20/2022 [UNIT Y] PRO Kapoor spinal muscular atrophy carrier screen NEGATI VE 2 SMN1 copies , SNP not presen t normal Not Available [facility] [address], [place], [address], 12/20/2022 18:18:49 1012/20/2022 [UNIT Y] PRO Kapoor for detailed report, see pdf See PDF normal Not Available [facility] [address], [place], [address], 12/20/2022 18:18:49 12/24/1912/23/2022 [UNIT Y] ANEUP LOIDY NIPT fraction 25.2% normal Not Available [facility] [address], [place], [address], 12/23/2022 01:12:57 12/24/19 23 12/23/2022 [UNIT Y] ANEUP LOIDY NIPT sex chromosome aneuploidy NOT DETECT ED normal Not Available [facility] [address], [place], [address], 12/23/2022 01:12:57 12/24/19 23 12/23/2022 [UNIT Y] ANEUP LOIDY NIPT monosomy X LOW RISK <1 in 10,000 normal Not Available [facility] [address], [place], [address], 12/23/2022 01:12:57 12/24/1912/23/2022 [UNIT Y] ANEUP LOIDY NIPT trisomy 13 LOW RISK <1 in 10,000 normal Not Available [facility] [address], [place], [address], 12/23/2022 01:12:57 12/24/19 23 12/23/2022 [UNIT Y] ANEUP LOIDY NIPT trisomy 18 LOW RISK <1 in 10,000 normal Not Available [facility] [address], [place], [address], 12/23/2022 01:12:57 12/24/19 23 12/23/2022 [UNIT Y] ANEUP LOIDY NIPT trisomy 21 LOW RISK <1 in 10,000 normal Not Available [facility] [address], [place], [address], 12/23/2022 01:12:57 12/24/19 23 12/23/2022 [UNIT Y] ANEUP LOIDY NIPT sex FEMALE normal Not Available [facility] [address] [facility], [place], [address], 12/23/2022 01:12:57 12/24/19 23 12/23/2022 [UNIT Y] ANEUP LOIDY NIPT gestation SINGLE TON normal Not Available [facility] [address] [facility], [place], [address], 12/23/2022 01:12:57 12/24/19 23 12/23/2022 [UNIT Y] ANEUP LOIDY NIPT for detailed report, see pdf See PDF normal Not Available [facility] [address] [facility] , [place], [address], 12/23/2022 01:12:57 07/03/19 24 07/03/2023 OB 28W (SYPH OB 28W (syph No sample receiv ed at [facility] as of 2023 Not Available [facility] [address] [place], [address], 07/03/2023 14:50:27 11/16/19 23 11/15/2022 pregn dee test, urine HCG positi ve Not Available [facility] [address] [place], [address], 11/15/2022 10:45:00 12/14/1912/14/2022 CBC (INCL UDES DIFF/ PLT) WBC 9.9 thous and/u L 4.0 - 9.8 high Not Available [facility] [address] [place], [address], 12/14/2022 12:03:35 12/14/1912/14/2022 CBC (INCL UDES DIFF/ PLT) RBC 4.2 rico on/uL 3.9 - 4.9 normal Not Available [facility] [address] [place], [address], 12/14/2022 12:03:35 12/14/1912/14/2022 CBC (INCL UDES DIFF/ PLT) hemoglobin 12.4 g/dL 11.8 - 14.8 normal Not Available [address], [address], 12/14/2022 12:03:35 12/14/1912/14/2022 CBC (INCL UDES DIFF/ PLT) hematocrit 37.4 % 35.5 - 44.0 normal Not Available [address], [address], 12/14/2022 12:03:35 12/14/1912/14/2022 CBC (INCL UDES DIFF/ PLT) MCV 89.7 fL 82.0 - 99.0 normal Not Available [address], [address], 12/14/2022 12:03:35 12/14/1912/14/2022 CBC (INCL UDES DIFF/ PLT) MCH 29.7 pg 27.2 - 32.6 normal Not Available [address], [address], 12/14/2022 12:03:35 12/14/1912/14/2022 CBC (INCL UDES DIFF/ PLT) MCHC 33.2 g/dL 31.5 - 35.5 normal Not Available [address], [address], 12/14/2022 12:03:35 12/14/1912/14/2022 CBC (INCL UDES DIFF/ PLT) RDW-CV 12.9 % 11.5 - 14.5 normal Not Available [address], [address], 12/14/2022 12:03:35 12/14/1912/14/2022 CBC (INCL UDES DIFF/ PLT) platelet 275 thous and/u L 140 - 350 normal Not Available [address], [address], 12/14/2022 12:03:35 12/14/1912/14/2022 CBC (INCL UDES DIFF/ PLT) MPV 11.4 fL 9.3 - 12.4 normal Not Available [address], [address], 12/14/2022 12:03:35 12/14/1912/14/2022 CBC (INCL UDES DIFF/ PLT) absolute neutrophil 7.19 thous and/u L 1.90 - 7.00 high Not Available [address], [address], 12/14/2022 12:03:35 12/14/1912/14/2022 CBC (INCL UDES DIFF/ PLT) absolute lymphocyte 2.11 thous and/u L 0.70 - 4.50 normal Not Available [address], [address], 12/14/2022 12:03:35 12/14/1912/14/2022 CBC (INCL UDES DIFF/ PLT) absolute monocyte 0.46 thous and/u L 0.10 - 1.30 normal Not Available [address], [address], 12/14/2022 12:03:35 12/14/19 23 12/14/2022 CBC (INCL UDES DIFF/ PLT) absolute eosinophil 0.05 thous and/u L <0.70 normal Not Available [address], [address], 12/14/2022 12:03:35 12/14/1912/14/2022 CBC (INCL UDES DIFF/ PLT) absolute basophil 0.04 thous and/u L <0.20 normal Not Available [address], [address], 12/14/2022 12:03:35 12/14/1912/14/2022 CBC (INCL UDES DIFF/ PLT) absolute immature granulocyte 0.01 thous and/u L <0.03 normal Not Available [address], [address], 12/14/2022 12:03:35 12/14/1912/14/2022 HEMOG LOBIN A1C hemoglobin A1C 5.1 % <5.7 normal The refer ence range for HbA1c is indic ated in the table below . Sugge sted Diagn osis =6.5% Consi stent with diabe jane 5.7 6.4% Consi stent with incre ased risk for diabe jane (pred iabet ic) <5.7% Consi stent with the absen ce of diabe jane Not Available [address], [address], 12/14/2022 12:08:45 12/14/1912/14/2022 OB PANEL - STD BLOOD WORK hep BS Ag Non-Re active non-re active normal Not Available [address], [address], 12/14/2022 13:05:57 12/14/1912/14/2022 OB PANEL - STD BLOOD WORK hep C Ab Non-Re active non-re active normal Not Available [address], [address], 12/14/2022 13:05:57 12/14/1912/14/2022 OB PANEL - STD BLOOD WORK HIV 1/2 Ag/Ab Non-Re active non-re active normal Not Available [address], [address], 12/14/2022 13:05:57 12/14/1912/14/2022 OB PANEL - STD BLOOD WORK syphilis Ab Non-Re active non-re active normal Not Available [address], [address], 12/14/2022 13:05:57 12/14/192023 OB PANEL - STD BLOOD WORK rubella Ab IgG 105.00 IU/mL normal INTER PRETI VE INFOR MATIO N: Rubel la Antib maryse, IgG. < 5.0 IU/mL ..... ..... . Not consi stent with immun ity 5.0 - 9.9 IU/mL ..... . Equiv ocal: Indet ermin ate-R epeat testi ng in 10-14 days may be helpf ul. > or = 10.0 IU/mL ... Consi stent with immun ity The prese nce of Rubel la IgG antib maryse sugge st respo nse to immun izati on or prior /curr ent expos ure to the Rubel la virus . Not Available [facility] [address] [place], [address], 12/14/2022 13:05:57 12/14/1912/14/2022 CT/NG chlamydia trachomatis CT neg negati ve normal This repor t is inten ded for us in clini saleem monit oring and manag ement of patie nts. It is not inten ded for use in medic al-le gal appli catio n. Not Available [facility] [address] [facility], [place], [address], 12/14/2022 15:37:16 12/14/19 23 12/14/2022 CT/NG neisseria gonorrhoeae GC neg negati ve normal This repor t is inten ded for us in clini saleem monit oring and manag ement of patie nts. It is not inten ded for use in medic al-le gal appli catio n. Not Available [facility] [address] [facility], [place], [address], 12/14/2022 15:37:16 12/14/19 23 12/19/2022 VARIC JHONNY ZOSTE R VIRUS ANTIB MARYSE (IGG) varicella zoster virus antibody (IgG) 742.40 index normal Index Inter preta tion ----- ---- ----- ----- ----- ----- -- <135. 00 Negat susan - Antib maryse not detec vimal 135.0 0 - 164.9 9 Equiv ocal > or = 165.0 0 Posit susan - Antib maryse detec vimal A posit susan resul t indic ates that the patie nt has antib maryse to VZV but does not diffe renti ate betwe en an activ e or past infec tion. The clini saleem diagn osis must be inter prete d in conju nctio n with the clini saleem signs and sympt oms of the patie nt. This assay relia jesse measu res immun ity due to previ ous infec tion but may not be sensi tive enoug h to detec t antib odies induc ed by vacci natio n. Thus, a negat susan resul t in a vacci nated indiv idual does not neces saril y indic ate susce ptibi lity to VZV infec tion. A more sensi tive test for vacci natio n-ind uced immun ity is Varic jhonny Cyndeee r Virus Antib maryse Immun ity Scree n, ACIF. Not Available [address] [address] [place], [address], 12/19/2022 17:20:41 12/14/1912/19/2022 HEMOG LOBIN OPATH Y EVALU ATION red blood cell count 4.16 rico on/uL 3.80-5 .10 Not Available [facility] [address] [address] [place], [address], 12/19/2022 17:20:42 12/14/1912/19/2022 HEMOG LOBIN OPATH Y EVALU ATION hemoglobin 12.6 g/dL 11.7-1 5.5 Not Available [employer] [address] [address] [place], [address], 12/19/2022 17:20:42 12/14/1912/19/2022 HEMOG LOBIN OPATH Y EVALU ATION hematocrit 38.3 % 35.0-4 5.0 Not Available [address] [address] [place], [address], 12/19/2022 17:20:42 12/14/1912/19/2022 HEMOG LOBIN OPATH Y EVALU ATION MCV 92.1 fL 80.0-1 00.0 Not Available [address] [address] [place], [address], 12/19/2022 17:20:42 12/14/1912/19/2022 HEMOG LOBIN OPATH Y EVALU ATION MCH 30.3 pg 27.0-3 3.0 Not Available [address] [address] [place], [address], 12/19/2022 17:20:42 12/14/1912/19/2022 HEMOG LOBIN OPATH Y EVALU ATION RDW 12.9 % 11.0-1 5.0 Not Available [address] [address] [place], [address], 12/19/2022 17:20:42 12/14/1912/19/2022 HEMOG LOBIN OPATH Y EVALU ATION hemoglobin A 97.3 % >96.0 Not Available [address] [address] [place], [address], 12/19/2022 17:20:42 12/14/1912/19/2022 HEMOG LOBIN OPATH Y EVALU ATION hemoglobin F <1.0 % <2.0 Not Available [address] [address] [place], [address], 12/19/2022 17:20:42 12/14/1912/19/2022 HEMOG LOBIN OPATH Y EVALU ATION hemoglobin A2 (quant) 2.7 % 2.2-3. 2 Not Available [address] [address] [place], [address], 12/19/2022 17:20:42 12/14/19 23 12/19/2022 HEMOG LOBIN OPATH Y EVALU ATION interpretati on Milvia l pheno type. Milvia l hemog lobin distr ibuti on, no HgS, HgC or other abnor mal hemog lobin obser maddie. Not Available [address] [place], [address], 12/19/2022 17:20:42 12/14/1912/19/2022 ANTIB MARYSE SCREE N, RBC W/REF L ID, TITER AND AG antibody screen, RBC w/refl id, titer and Ag NO ANTIBO DIES DETECT ED normal Refer ence range No antib odies detec vimal This assay is a scree panchito test for the detec tion of red blood cell antib odies . The test is not to be used for pretr ansfu rafael scree panchito or for the medic al manag ement of an alloi mmuni zed pregn dee. Not Available [address] , [place], [address], 12/19/2022 17:20:42 12/14/1912/19/2022 ABO GROUP AND RH TYPE ABO group O Not Available [address] , [place], [address], 12/19/2022 17:20:43 12/14/1912/19/2022 ABO GROUP AND RH TYPE Rh type RH(D) POSITI VE For addit ional infor flor lam e refer to http: //[facility] tai kapoor.Que stDia gnost ics.c om/fa q/FAQ 111 (This link is being provi ded for infor scott bobby/ educmariaa espinal purpo ses only. ) Not Available [address] [place], [address], 12/19/2022 17:20:43 12/14/1912/19/2022 CULTU RE, URINE , ROUTI NE culture, urine, routine SEE NOTE CULTU RE, URINE , ROUTI NE Micro Numbe r: [id number] Test Statu s: Final Speci men Sourc e: Urine Speci men Quali ty: Adequ ate Resul t: No Growt h Not Available [facility] [address] [address] [place], [address], 12/19/2022 17:20:44 01/10/20 23 01/11/2023 MATER NAL SERUM AFP interpretati on: Scree n negat susan for open NTD. Not Available [facility] [address] [address] [place], [address], 01/11/2023 18:04:21 01/10/2001/11/2023 MATER NAL SERUM AFP risk for ontd <1 IN 5000 Not Available [facility] [address], [address], 01/11/2023 18:04:21 01/10/20 23 01/11/2023 MATER NAL SERUM AFP AFP, serum 25.3 NG/mL Not Available [facility] [address], [address], 01/11/2023 18:04:21 01/10/2001/11/2023 MATER NAL SERUM AFP AFP MOM 0.76 Not Available [address], [address], 01/11/2023 18:04:21 01/10/2001/11/2023 MATER NAL SERUM AFP comments: This patie nt's JONATHAN (juan mated date of del emerald) was used to calcu late the gesta sandy l age. The AFP test resul t indic ates that this patie nt is scree n negat susan for open NTD. It shoul d be noted that milvia l test resul ts can never guara ntee the of a milvia l baby and that 2-3% of [facility] r[facility] have some type of physi saleem or menta l defec t, many of which are undet ectab le throu gh any known prena kishore diagn ostic techn ique. Not Available [facility] [address] [place], [address], 01/11/2023 18:04:21 01/10/20 23 01/11/2023 MATER NAL SERUM AFP comment This is a scree panchito test, not a diagn ostic test. This risk asses sment repor t is based in part on demog raphi c data provi ded by the order ing physi umesh. Pleas e notif y the labor atory promp tly if any data are incor rect. For brea tance with recal culat ions, pleas e call your local [facility] . For brea tance with inter preta tion of these resul ts, pleas e conta ct your Local [facility] danette ic couns elor or call [phone] INFO( [phone]). Inter preti ve Cutof fs Scree n Posit susan for Open NTD: > or = 2.50 adjus vimal MOM > or = 1.90 adjus vimal MOM for insul in-de pende nt diabe tics > or = 4.00 adjus vimal MOM for twins > or = 3.50 adjus vimal MOM for twins insul in-de pende nt diabe tics > or = 4.50 adjus vimal MOM for tripl ets For addit ional infor flor lam e refer to http: //anderson kapoor.que stdia gnost ics.c om/fa q/FAQ 74v1 (This link is being provi ded for infor scott bobby/ educa sandy l purpo ses only. ) Not Available [facility] [address], [place], [address], 01/11/2023 18:04:21 01/10/20 23 01/11/2023 MATER NAL SERUM AFP calc'd gestational age 15.9 weeks Not Available [facility] [address], [place], [address], 01/11/2023 18:04:21 01/10/20 23 01/11/2023 MATER NAL SERUM AFP maternal weight 149 lbs Not Available [facility] [place] [address] [place], [address], 01/11/2023 18:04:21 01/10/20 23 01/11/2023 MATER NAL SERUM AFP est'd date of delivery 2023 Not Available [address] [address] [place], [address], 01/11/2023 18:04:21 01/10/20 23 01/11/2023 MATER NAL SERUM AFP jonathan determined by LMP Not Available [address] [place], [address], 01/11/2023 18:04:21 01/10/20 23 01/11/2023 MATER NAL SERUM AFP mother's ethnic origin CAUCAS JATINDER Not Available [address], [address], 01/11/2023 18:04:21 01/10/20 23 01/11/2023 MATER NAL SERUM AFP number of fetuses 1 Not Available [address] [address] [place], [address], 01/11/2023 18:04:21 01/10/20 23 01/11/2023 MATER NAL SERUM AFP insulin depend diabetic NO Not Available [address] [address] [place], [address], 01/11/2023 18:04:21 01/10/20 23 01/11/2023 MATER NAL SERUM AFP repeat specimen NO Not Available [facility] [address] [address] [place], [address], 01/11/2023 18:04:21 01/10/20 23 01/11/2023 MATER NAL SERUM AFP Hx of neural tube defects NO Not Available [address] [address] [place], [address], 01/11/2023 18:04:21 11/06/01/11/2023 MATER NAL SERUM AFP prev down synd NO Not Available [facility] [address], [place], [address], 01/11/2023 18:04:21 01/10/20 23 01/11/2023 MATER NAL SERUM AFP donor egg NO Not Available [facility] [address] [place], [address], 01/11/2023 18:04:21 01/10/20 23 01/11/2023 MATER NAL SERUM AFP donor age: egg retrieval NOT GIVEN Not Available [facility] [address], [place], [address], 01/11/2023 18:04:21 04/03/19 24 04/04/2023 (50G) 1HR - GLUCO SE TOYA ANCE TEST, GESTA SANDY L SCREE N glucose (50g) 1 hour 133 mg/dL <135 normal Not Available [facility] [address] [place] [address], [address], 04/04/2023 10:51:18 11/18/19 23 11/15/2022 US, trans vagin al No observ ation record ed. [email or web address], [facility], [place], [address], 11/18/2022 09:53:03 02/07/20 23 02/06/2023 US, obste tric, trans vagin al No observ ation record ed. [facility] [place], [address], 02/07/2023 11:09:12 02/07/20 23 02/06/2023 US, trans vagin al No observ ation record ed. [facility] [address] [place], [address], 02/07/2023 11:09:28 03/07/19 24 03/07/2023 US, trans vagin al No observ ation record ed. [facility] [address] [place], [address], 03/13/2023 11:35:15 Result Notes None recorded. Problems Name Problem SNOMED Code Status Onset Date Resolution Date Notes Provider Name and Address Organization Details Recorded Time Pelvic and perineal pain 728249778 Completed 201802/11/2020 Pelvic and perineal pain; Progress : Stable Added By: Radha Orozco Add to Current Problems : NO ProblemS tatus: Resolve Not Available [facility] 2 21:39:09 Transien t hyperten rafael of pregnanc y - delivere d [id number] Completed 201703/17/2018 Transien t hyperten rafael of pregnanc y, delivere d; Location : None Progress : Stable Added By: Radha Orozco Add to Current Problems : NO ProblemS tatus: Resolve Not Available [facility] 2 21:39:08 Johanna ry postpart um mood disturba nce 96379176 Completed 201705/15/2018 Postpart um mood disturba nce; Progress : Stable Added By: Radha Orozco Add to Current Problems : NO ProblemS tatus: Resolve Not Available [facility] 2 21:39:08 Uses combined oral contrace ption 051402173 Completed 201803/03/2020 Encounte r for initial prescrip tion of contrace ptive pills; Progress : Stable Added By: Negra Messer Add to Current Problems : NO ProblemS tatus: Resolve Not Available [facility] 2 20:40:10 Pregnanc y, childbir th and puerperi um finding Completed 201705/15/2018 Encounte r for supervis ion of normal first pregnanc y, third trimeste r; Progress : Stable Added By: Edyta Bryson Add to Current Problems : NO ProblemS tatus: Resolve Not Available [facility] 2 21:39:07 Gestatio n period, 34 weeks 21864037 Completed 201705/15/2018 34 weeks gestatio n of pregnanc y; Progress : Stable Added By: Edyta Bryson Add to Current Problems : NO ProblemS tatus: Resolve Not Available [facility] 2 21:39:08 Secondar y amenorrh ea 221357252 Completed 201802/11/2020 Secondar y amenorrh ea; Progress : Stable Added By: Radha Orozco Add to Current Problems : NO ProblemS tatus: Resolve Not Available [facility] 2 20:40:09 Group B Streptoc occus carrier [id number] 03 Completed 201705/15/2018 Carrier of Group B streptoc occus; Progress : Stable Added By: Edyta Bryson Add to Current Problems : NO ProblemS tatus: Resolve Possible Group B streptoc occus carrier; Location : None Progress : Stable Added By: Edyta Bryson Add to Current Problems : YES ProblemS tatus: Current Not Available [facility] 2 21:39:08 [facility] [id number]106 Active 2019 Encounte r for supervis ion of other normal pregnanc y, first trimeste r; Progress : Stable Added By: Kaitlin Ramos Add to Current Problems : YES ProblemS tatus: Current Not Available [facility] 2 21:39:07 Clinical finding Completed 201702/11/2020 Encounte r for surveill ance of injectab le contrace ptive; Progress : Stable Added By: Rena Victoria Add to Current Problems : NO ProblemS tatus: Resolve Not Available [facility] 2 21:39:08 Abnormal finding on antenata l screenin g of mother 306927093 Completed 201702/19/2018 Abnormal finding on antenata l screenin g; Progress : Stable Added By: Dary Valverde Add to Current Problems : NO ProblemS tatus: Resolve Unspecif ied abnormal findings on antenata l screenin g of mother; Progress : Stable Added By: Dary Valverde Add to Current Problems : NO ProblemS tatus: Resolve Not Available [facility] 2 21:39:08 Excessiv e weight gain 572845935 Completed 201701/22/2018 Excessiv e weight gain; Progress : Stable Added By: Dary Valverde Add to Current Problems : NO ProblemS tatus: Resolve Not Available [facility] 2 21:39:09 Lochia finding Completed 201705/15/2018 Encounte r for routine postpart um follow-u p; Progress : Stable Added By: Radha Orozco Add to Current Problems : NO ProblemS tatus: Resolve Not Available [facility] 2 21:39:07 Gestatio n period, 8 weeks 71145704 Active 2019 8 weeks gestatio n of pregnanc y; Progress : Stable Added By: Kaitlin Ramos Add to Current Problems : YES ProblemS tatus: Current Not Available [facility] 2 21:39:09 Pregnanc y 40299484 Completed 202007/18/2022 Lola Hester null, [facility] 3 12:18:56 Routine antenata l care Completed Anatomy complete Adore Call null, [place] [facility] 3 17:44:56 Antenata l screenin g Active 2019 Encounte r for antenata l screenin g of mother; Progress : Stable Added By: Orly De Leon Add to Current Problems : NO ProblemS tatus: Resolve; Start Date : 08/23/19 18 Encou nter for other specifie d antenata l screenin g; Progress : Stable Added By: Kaitlin Ramos Add to Current Problems : YES ProblemS tatus: Current Antenata l screenin g; unspecif ied; Location : None Progress : Stable Added By: Edyta Bryson Add to Current Problems : YES ProblemS tatus: Current; Start Date : 06/16/19 18 [facility] Available [facility] 20:[facility] Normal pregnanc y 39013942 Active 2017 Medical visit for normal pregnanc y; Location : None Progress : Stable Added By: Edyta Bryson Add to Current Problems : YES ProblemS tatus: Current Not Available [facility] 2 21:39:07 anatomy study Active 2017 Encounte r for anatomic survey; Location : None Progress : Stable Added By: Orly De Leon Add to Current Problems : YES ProblemS tatus: Current Not Available [facility] 21:[facility] Pregnanc y 11041813 Active 2022 Lola Hester null, [facility] 3 12:18:56 Low lying placenta 939672989 Active Mariaelena [place], [facility] [address] [place], [address] , [facility] 4 11:07:35 Notes:Possible Group B strep tococcus carrier (V02.51) ; OnsetDate: 12/21/2017; ResolvedDate: 05/15/2018; Severity: Moderate Progress: Stable Added By: Edyta Bryson Add to Current Problems: NO ProblemStatus: Resolve Possible Group B streptococcus carrier (V02.51) ; OnsetDate: 12/21/2017; ResolvedDate: 05/15/2018; Progress: Stable Added By: Edyta Bryson Add to Current Problems: NO ProblemStatus: Resolve Encounter for anatomic survey (V28.81) ; OnsetDate: 08/22/2017; ResolvedDate: 05/15/2018; Progress: Stable Added By: Orly De Leon Add to Current Problems: NO ProblemStatus: Resolve screening; unspecified (V28.9) ; OnsetDate: 06/15/2017; ResolvedDate: 05/15/2018; Progress: Stable Added By: Edyta Bryson Add to Current Problems: NO ProblemStatus: Resolve Medical visit for normal (V22.1) ; OnsetDate: 06/15/2017; ResolvedDate: 05/15/2018; Progress: Stable Added By: Edyta Bryson Add to Current Problems: NO ProblemStatus: Resolve Problem Notes None recorded. Procedures Surgical History Date Name Laterality Status Provider Name and Address Organization Details Recorded Time 04/05/2021 Date of Last Pap Smear completed Negra Messer MD [address] [place], [address], [facility] 12/13/2022 00:18:36 Imaging Results Imaging Date Name Status LastModified by Organization Details LastModified Time 11/15/2022 US, transvaginal completed [email or web address] Jennifer [address], [place], [address], 11/18/2022 09:53:03 02/06/2023 US, obstetric, transvaginal completed [facility] [address] [place], [address], 02/07/2023 11:09:12 02/06/2023 US, transvaginal completed [facility] [address] [place], [address], 02/07/2023 11:09:28 03/07/2023 US, transvaginal completed [facility] [address] [place], [address], 03/13/2023 11:35:15 Procedure Notes None recorded. Medical Equipment None Reported. Allergies No known drug allergies Medications Name Sig Start Date Stop Date Status Note LastModified by Organization Details LastModified Time amoxicill in 500 mg capsule TAKE 1 CAPSULE BY MOUTH THREE TIMES DAILY UNTIL ALL TAKEN. 04/26 completed Not Available Not Available Not Available ofloxacin 0.3 % eye drops INSTILL 5 DROPS INTO EAR(S) TWICE DAILY FOR 7 DAYS 12/13 completed Not Available Not Available Not Available hydrocodo ne 5 mg-acetam inophen 325 mg tablet TAKE 1 TABLET BY MOUTH EVERY 4 TO 6 HOURS NEEDED FOR PAIN 04/26 completed Not Available Not Available Not Available amoxicill in 875 mg tablet TAKE 1 TABLET BY MOUTH EVERY 12 HOURS FOR 7 DAYS 12/13 completed Not Available Not Available Not Available Depo-Prov era 150 mg/mL intramusc ular suspensio n 1 injectio n IM q3mos. 12/26 completed Depo-Pro vera 150mg/1m l Injectio n RxNorm: 3502627 Allow Substitu tion: True Refill Denied: No Edited by: Radha Jones ) on 12/27/19 Stopped by: lyubov pink(Radha Vincent ) on 12/27/19 19 Not Available Not Available Not Available tamsulosi n 0.4 mg capsule TAKE 1 CAPSULE BY MOUTH ONCE DAILY 01/09 completed Not Available Not Available Not Available Flagyl 500 mg tablet take 1 tablet (500 mg) by oral route 2 times per day 02/10 completed Flagyl 500 mg oral tablet RxNorm: 508242 Allow Substitu tion: True Refill Denied: No Edited by: Misha Slaughter ) on 02/11/20 Stopped by: Misha Slaughter ) on 02/11/20 Not Available Not Available Not Available ondansetr on 4 mg disintegr ating tablet DISSOLVE 1 TABLET IN MOUTH EVERY 6 HOURS NEEDED FOR NAUSEA AND VOMITING active Not Available Not Available No t Available amoxicill in 875 mg-potass ium clavulana te 125 mg tablet TAKE 1 TABLET BY MOUTH EVERY 12 HOURS FOR 10 DAYS 12/13 completed Not Available Not Available Not Available doxycycli ne hyclate 150 mg tablet,de layed release take 1 tablet (150 mg) by oral route once daily 02/10 completed doxycycl ine hyclate 150 mg oral tablet, delayed release (enteric coated) RxNorm: [id number] Allow Substitu tion: True Refill Denied: No Edited by: Misha Slaughter ) on 02/11/20 Stopped by: Misha Slaughter ) on 02/11/20 Not Available Not Available Not Available 28 mg iron-800 mcg tablet one tab po daily 2019 active 28 mg iron- 800 mcg oral tablet Allow Substitu tion: True Refill Denied: No Edited by: Neela Roberson) on 02/11/20 Stopped by: Neela Roberson) on Not Available Not Available Not Available 28 mg-800 mcg tablet Take 1 tablet every day by oral route. 04/26 completed Not Available Not Available Not Available Roro 0.25 mg-35 mcg tablet take 1 tablet by oral route once daily 02/01 completed Not Available Not Available Not Available Vitals Date Recorded Body height Body mass index (BMI) Body weight Systolic blood pressure Diastolic blood pressure Provider Name and Address Organization Details Last Updated DateTime 12/13/2022 157.48 cm 26.6 kg/m2 39024.61 2124 g 122 mm[Hg] 76 mm[Hg] Lola Hester [place] [facility] 3 11:30:59 Date Recorded Body height Body mass index (BMI) Body temperature Systolic blood pressure Diastolic blood pressure Provider Name and Address Organization Details Last Updated DateTime 157.48 cm 27.3 kg/m2 98 [degF] 116 mm[Hg] 62 mm[Hg] Adore Call [facility] 3 11:12:14 Date Recorded Body weight Provider Name an d Address Organization Details Last Updated DateTime 01/09/2023 37762.33004 g Mariaelena Holder, [facility] [address] [place], [address], [place] [facility] 01/09/2023 12:05:02 Date Recorded Body height Body mass index (BMI) Body temperature Systolic blood pressure Diastolic blood pressure Provider Name and Address Organization Details Last Updated DateTime 3 157.48 cm 29 kg/m2 97.8 [degF] 124 mm[Hg] 68 mm[Hg] Adore Call [facility] 3 12:51:18 Date Recorded Body weight Provider Name an d Address Organization Details Last Updated DateTime 02/07/2023 00424.508111 g Mariaelena Holder, [facility] [address] [place], [address], [place] [facility] 02/07/2023 13:02:31 Date Recorded Body height Systolic blood pressure Diastolic blood pressure Provider Name and Address Organization Details Last Updated DateTime 03/08/2023 157.48 cm 120 mm[Hg] 70 mm[Hg] Adore Call [facility] 03/08/2023 11:06:39 Date Recorded Body height Body mass index (BMI) Body temperature Systolic blood pressure Diastolic blood pressure Provider Name and Address Organization Details Last Updated DateTime 157.48 cm 31.3 kg/m2 97.8 [degF] 124 mm[Hg] 66 mm[Hg] Adore Call [facility] 10:46:11 Date Recorded Body weight Provider Name an d Address Organization Details Last Updated DateTime 04/03/2023 01905.203455 g Mariaelena Holder, [facility] [address] [place], [address], [facility] 04/03/2023 11:07:35 Date Recorded Body height Provider Name an d Address Organization Details Last Updated DateTime 04/19/2023 157.48 cm Adore Call [facility] 04/19/2023 11:43:56 Social History Question Answer Notes LastModified by Organizat ion Details LastModified Time Tobacco Smoking Status Former Smoker Adore Call null, [facility] 02/01/2021 12:34:46 What Is Your Level Of Alcohol Consumption? None Information not available 02/01/2021 Are You Blind Or Do You Have Difficulty Seeing? No Information not available 03/01/2021 Are You Deaf Or Do You Have Serious Difficulty Hearing? No Information not available 03/01/2021 What Type Of Diet Are You Following? REGULAR Information not available 02/01/2021 Do You Or Have You Ever Used E-cigarettes Or Vape? Former User Of Electronic Cigarettes Information not available 02/01/2021 How Many Children Do You Have? 1 Information not available 02/01/2021 What Is Your Relationship Status? Domestic Partner Information not available 02/01/2021 Are You Sexually Active? Yes Information not available 02/01/2021 Sex: Unknown Functional Status Question Answer Note LastModified by Organizat ion Details LastModified Time What is your exercise level? Occasional Information not available 02/01/2021 Mental Status None recorded. Family History Relationship Description Onset Age of this Age Resolved Age Notes LastModified by Organization Details LastModified Time Father No current problems or disability Not available 12:35:47 Mother No current problems or disability Not available 12:35:47 Medical History Condition Response Other Cancer N High Blood Pressure N Colon Cancer N Cytomegalovirus N Hyperthyroidism N Breast Cancer N Herpes (HSV) N MRSA N Blood Transfusion N Lung Cancer N Hypothyroidism N Depression N Incontinence N Panic Attacks N Neurological Disorder N Deep Vein Thrombosis N Anxiety Disorder N Autoimmune disease N Arthritis N Tuberculosis/Positive PPD N Shingles N Polycystic Ovarian Syndrome N Cervical Cancer N Hematuria N Chlamydia N Varicosities N Stroke N Crohn's Disease N Seasonal allergies N Alzheimer's/Dementia N COPD/Emphysema N HPV/Genital Warts N Endometriosis N IBS (Irritable Bowel Syndrome) N History of Abnormal Pap N High Cholesterol N Liver Disease N Fibromyalgia N Kidney Infection N Ulcer N Kidney Disease N HIV N Gallbladder disease N Von Willebrand disease N Sickle Cell Disease/Trait N ADD/ADHD N Eating Disorder N Diabetes Mellitus (non-insulin dependent ) N Anemia N Ovarian Problems N Multiple Sclerosis N Gonorrhea N Frequent Urinary Tract infections N Osteopenia N Headaches/migraines N GERD (reflux) N Ovarian Cancer N Diabetes (insulin dependent) N Seizures/Epilepsy N Fibroids N Asthma N Heart Attack N Endometrial Cancer N Lupus N Rubella N Blood Clotting Disorder N Bipolar Disorder N Diabetes Mellitus (during ) N Ulcerative Colitis N Hepatitis N Heart Disease N Pulmonary Embolism N RPR N Chicken Pox N Osteoporosis N Gynecological History Statement/Question Response Flow Moderate Frequency of Cycle (Q days) 28 Date of LMP 09/20/2022 Most Recent Bone Density Date of Last Pap Smear 04/05/2021 Duration of Flow (days) 7 Most Recent Mammogram Current Control Method Age at Menarche 12 Obstetrics History GPAL:G 3 P 2 0 0 2 Type Value Multiple Births 0 Full Term 2 Induced 0 Spontaneous 0 Premature 0 Living 2 Ectopics 0 Total 3 Past Encounters Encounter ID Performer Location Encounter Start Date Encounter Closed Date Diagnosis/Indication Diagnosis SNOMED-CT Code Diagnosis ICD10 Code Diagnosis Note [id number] JOSE Ga [facility] [address] [place] [address] 02/01/2021 10:59:20 02/11/2021 10:49:51 20645934 Z33.1 Z34.91 1. IUP FWB reassuring by initial US done in office today. Aneuploidy screening: Anatomy Scan:2. NOB Labs ordered on 02/01/21 Pap and GCCT collected and sent.3. Cracked Tooth - pt given dental note and encouraged to expedite dental care.4. Delivery Plans:5. PP Contracept ion Plans: Follow up in 4 weeks. Routine an tenatal care 252103123 Z34.01 Z34.81 O09.511 O09.521 Screening for malignant neoplasm of cervix 940966077 Z12.4 [id number] [place] RAESagrario CABRAL, [facility] [address] [place] [address] 03/01/2021 09:40:25 03/01/2021 21:23:06 Gestation period, 12 weeks 20072049 Z3A.12 Normal pre gnancy in multigravida 9596049602 33634 Z34.81 [id number] JOSE Ga [facility] [address] [place] [address] 04/05/2021 09:22:15 04/05/2021 13:10:45 Routine care 022919810 Z34.82 1. IUP FWB reassuring by + FM noted on BSUS. Aneuploidy screening: Penta pending; drawn on 04/05/21. Anatomy Scan:2. O+/RI/NR x 4. Pap pending; see below POC.3. Cracked Tooth - pt given dental note and encouraged to expedite dental care. --> Update 04/05/21: had tooth extraction on 03/24/21.4. Unsatisfac tory Pap 01/2021 --> Repeat collection 04/05/21.5. PP HTN - occured after delivery of son. LDASA daily reinforced . Baseline PreE labs ordered with Penta. Pt educated on HTN/PreE precaution s, and when to notify HCP/go to ER.6. Delivery Plans:7. PP Contracept ion Plans: Follow up in 3 weeks. Screening for malignant neoplasm of cervix 256040675 Z12.4 screening 2437 79213 Z36.0 Past pregn dee history of gestational hypertension 735216102 Z87.59 Gynecologi c examination 85789147 Z01.605 [id number] JESSI HOLDERM [facility] [address] [place] [address] 04/26/2021 10:17:33 04/26/2021 13:14:54 Routine care 448729887 Z34.92 IUP @ 20+ wks. US: complete, placenta anterior, normal anatomy, active F/M.No OB complaints . RTO 4 wks. Desires Homebirth. Discussed midwifery care with [place] is within the hospital setting. Pt. exploring other options at this time. Encouraged to make follow up appointmen t in 4 weeks. 14074700 Z33.1 Z34.91 plans to hire a shop estimator, informatio n given. [id number] HILDA PORTILLO, SVP [employer] [address] [address] 11/15/2022 10:37:12 11/16/2022 11:18:19 test positive 337675049 Z32.01 Pt presents today for a confirmati on of visit. has not been previously confirmed at another healthcare facility. Pt voiced that she is happy about this . TVUS today showed:IUP with Cardiac Activity. JONATHAN consistent with LMP. JONATHAN: 06/27/2023 Gestationa l Age: 8w 0dFHT: 156 First trimester teaching provided.- --Foods and activities to avoid---Sa fe meds---Natanael entation to practice-- -Delivery locations- --BERNARD visit progressio n---Prenat al vitamins daily--- Toxoplasmo sis precaution s reviewed-- -S/S of SAB reviewed and when to seek care RTC 4 weeks for 1st OB, Labs, and Physical. --BMI: 27.3 [id number] Negra Messer MD [facility] [address] [place] [address] 12/13/2022 11:18:19 12/14/2022 09:20:32 Gestation period, 12 weeks 60734821 Z3A.12 Routine an tenatal care 653221469 Z34.81 screening 2637 58576 Z36.89 Carrier de tection, molecular genetics 8161935 Z14.8 [id number] [facility] [address] [place] [address] 01/09/2023 10:50:02 01/09/2023 18:13:37 Gestation period, 15 weeks 6694647 Z3A.15 Routine an tenatal care 124053493 Z34.92 screening 2437 46354 Z36.9 [id number] [facility] [address] [place] [address] 02/07/2023 12:41:19 02/07/2023 15:49:28 Gestation period, 20 weeks 76257146 Z3A.20 Routine an tenatal care 134346494 Z34.92 [id number] [facility] [address] [place] [address] 03/08/2023 10:46:54 03/08/2023 18:41:39 Gestation period, 24 weeks 999785647 Z3A.24 Routine an tenatal care 959482991 Z34.92 [id number] Mariaelena Richmond AnastacioJESSI [facility] [address] [place] [address] 04/03/2023 10:27:42 04/03/2023 17:36:12 Gestation period, 27 weeks 24881766 Z3A.27 Routine an tenatal care 330230216 Z34.92 Health Concerns Section Related Observation LastModified by Organization Detai ls LastModified Time None Recorded Concern Status LastModified by Organization Details LastModified Time None Recorded Advance Directives Directive None Recorded Payers Encounter Date Sequence Insurance Name Policy Number Policy Garsia Covered Member ID Garsia Member ID Guarantor Name 12/13/2022 1 [facility] ON OR AFTER 09/03/20 (MEDICAID REPLACEMENT - HMO) Dariana Lyon [id number] Dariana Lyon 01/09/2023 1 [facility] ON OR AFTER 09/03/20 (MEDICAID REPLACEMENT - HMO) Dariana Lyon [id number] Dariana Lyon 02/07/2023 1 [facility] ON OR AFTER 09/03/20 (MEDICAID REPLACEMENT - HMO) Dariana Mendenhall Lyon [id number] Dariana Espinal Lyon 03/08/2023 1 [facility] AFTER 09/03/20 (MEDICAID REPLACEMENT - HMO) Dariana Mendenhall Lyon [id number] Dariana Espinal Lyon 04/03/2023 1 [facility] ON [facility] AFTER 09/03/20 (MEDICAID REPLACEMENT - HMO) Dariana Abdirashid Lyon [id number] Dariana E Kwasi Lyon Notes Date Note Type Note Provider Name and Address Organization Details Recorded Time 12/13/2022 text/html Dariana 22 y/o h ere for 1st OB visit confirmed on 11/15/2022 with U/S, she is 12/0weeks, denies any vaginal spotting , bleeding, fluid leakage or cramping, movement not felt yet, taking vitamins, denies any nausea / vomiting. Negra Messer MD [facility] [place], [address], [facility] 12/13/2022 11:47:59 01/09/2023 text/html OB ProblemReport ed bypatient.Associated Symptoms:no abdominal pain; no cramping; no bleeding; no vaginal discharge; no vaginal/vulvar itching or irritation; no headache; no dizziness; no breathlessnessNotes:n o back pain Mariaelena Holder CNM [facility] [place], [address], [facility] 01/09/2023 12:05:58 02/07/2023 text/html OB ProblemReport ed bypatient.Associated Symptoms:no abdominal pain; no cramping; no contractions; normal movement; no bleeding; no ROM; no vaginal discharge; no vaginal/vulvar itching or irritation; no edema; no visual changes; no headache; no dizziness; no breathlessness Mariaelena Holder CNM [address] [place], [address], [facility] 02/07/2023 13:02:49 03/08/2023 text/html OB ProblemReport ed bypatient.Associated Symptoms:no abdominal pain; no cramping; no contractions; normal movement; no bleeding; no ROM; no vaginal discharge; no vaginal/vulvar itching or irritation; no edema; no visual changes; no headache; no dizziness; no breathlessness Mariaelena Holder CNM [address] [place], [address], [facility] 03/08/2023 11:44:11 04/03/2023 text/html OB ProblemReport ed bypatient.Associated Symptoms:no abdominal pain; no cramping; no contractions; normal movement; no bleeding; no ROM; no vaginal discharge; no vaginal/vulvar itching or irritation; no edema; no visual changes; no headache; no dizziness; no breathlessness Mariaelena Holder CNM [address] [place], [address], [facility] 04/03/2023 11:08:04 OBGyn Episode Ob Episode Information Episode Created Date Number of Fetuses Patient Bloodtype Patient rh Status Prepregnancy Weight lbs Domestic Partner Domestic Partner Phone Father Name Video Game Programmer Status 02/02/20 21 1 CLOSED Fetus Data First Name Last Name Admitted to NICU Weight (g) Sex Living Outcome Pediatric Complications Fetus ID Race Codes Race Delivery Type 4025.62 9 Full Term [id number] Jonathan Calculation Initial Jonathan Date Initial Exam Date Initial Exam Provider Initial Ultrasound Date Last Menstrual Period Date Ultra Sound Weeks Gestation 0 Eighteen To Twenty Week Jonathan Update Ultra Sound Date Fundal Height At Umbil Quickening Date Ultra Sound Latest Weeks Gestation Final Jonathan Confirmed By Final Jonathan Confirmed Date Final Jonathan Date Ultra Sound Latest Days Gestation 0 0 Menstrual History Last Menstrual Date Menses Monthly On Bcp Conception Prior Menses Frequency Hcg Plus Date Menarche Onset Age Delivery Information Delivery Date Delivery Type Labor Anesthesia Weeks Gestation Incision Type Labor Labor Length Hrs Delivered By Post Complications Tubal Sterilization Discharge Date Comments 1 40 Discharge Information Feeding Method Contraceptive Method Maternal HG B and HCT Levels Ob Episode Information Episode Created Date Number of Fetuses Patient Bloodtype Patient rh Status Prepregnancy Weight lbs Domestic Partner Domestic Partner Phone Father Name Video Game Programmer Status 02/02/20 21 1 O Positive 152.2 CLOSED Fetus Data First Name Last Name Admitted to NICU Weight (g) Sex Living Outcome Pediatric Complications Fetus ID Race Codes Race Delivery Type [id number] Problems Problem Notes Problem Name Start Date End Date Resolution Snomed Code Not e Routine care 2012760 03 Anatomy complete Jonathan Calculation Initial Jonathan Date Initial Exam Date Initial Exam Provider Initial Ultrasound Date Last Menstrual Period Date Ultra Sound Weeks Gestation 09/13/2021 02/01/2021 12/07/2020 0 Eighteen To Twenty Week Jonathan Update Ultra Sound Date Fundal Height At Umbil Quickening Date Ultra Sound Latest Weeks Gestation Final Jonathan Confirmed By Final Jonathan Confirmed Date Final Jonathan Date Ultra Sound Latest Days Gestation 0 [email or web address] 02/01/2021 09/14/19 22 0 Pre-ivan Flowsheet Flowsheet Date 02/01/2021 Choi Score Blood Edema Fundus Height Fundus Units Glucose Ketones Leukocytes Nitrite Labor Signs Protein Cervic Dilation Cervic Effacement Cervic Station none none neg Type Weight in lbs Pre/Post Dialysis Refused With clothes 152.65645264311 BP Diastolic BP Location Tested BP Systolic BP Type 72 126 sitting Fetus Heart Rate Present A 148 Present Fetus Movement A No Comments Flowsheet Date 03/01/2021 Choi Score Blood Edema Fundus Height Fundus Units Glucose Ketones Leukocytes Nitrite Labor Signs Protein Cervic Dilation Cervic Effacement Cervic Station none none neg Type Weight in lbs Pre/Post Dialysis Refused With clothes 150.579458404242 BP Diastolic BP Location Tested BP Systolic BP Type 88 R arm 142 sitting 66 R arm 126 sitting Fetus Heart Rate Present A 168 Present Fetus Movement A Yes Comments Patient states that she was in hospital x4days after discharging PP for BP issues. Recommended beginning 81mg ASA at this time daily. Reviewed SAB s/s and when to seek care. Plan baseline preeclampsia labs next visit. RTC 4 weeks BERNARD Flowsheet Date 04/05/2021 Choi Score Blood Edema Fundus Height Fundus Units Glucose Ketones Leukocytes Nitrite Labor Signs Protein Cervic Dilation Cervic Effacement Cervic Station none none none neg Type Weight in lbs Pre/Post Dialysis Refused Weight 156.711560641938 BP Diastolic BP Location Tested BP Systolic BP Type 70 118 Fetus Heart Rate Present A 150 Fetus Movement A No Comments 1. IUP FWB reassuring by + F M noted on BSUS. Aneuploidy screening: Penta pending; drawn on 04/05/21. Anatomy Scan:2. O+/RI/NR x 4. Pap pending; see below POC. 3. Cracked Tooth - pt given dental note and encouraged to expedite dental care. --> Update 04/05/21: had tooth extraction on 03/24/21.4. Unsatisfactory Pap 01/2021 --> Repeat collection 04/05/21. 5. PP HTN - occured after delivery of son. LDASA daily reinforced. Baseline PreE labs ordered with [facility]. Pt educated on HTN/PreE precautions, and when to notify HCP/go to ER.6. Delivery Plans:7. PP Contraception Plans: Flowsheet Date 04/26/2021 Choi Score Blood Edema Fundus Height Fundus Units Glucose Ketones Leukocytes Nitrite Labor Signs Protein Cervic Dilation Cervic Effacement Cervic Station none 20 wks none none neg Type Weight in lbs Pre/Post Dialysis Refused Weight 157.523919599884 BP Diastolic BP Location Tested BP Systolic BP Type 74 126 Fetus Heart Rate Present A 153 Present Fetus Movement A Yes Comments Anatomy complete, cervix jassi g and closed. Desires at home. Discussed [facility] midwifery delivers within hospital, pt plans to explore other options. No OB concerns today, FWB reassuring routine f/u in 4 weeks. Menstrual History Last Menstrual Date Menses Monthly On Bcp Conception Prior Menses Frequency Hcg Plus Date Menarche Onset Age 1012/07/2020 Genetic Screening And Infection History Question Response Note Recent Travel History Outside of Country false Cystic Fibrosis false Any Other Genetic History false Paresh Disease false Other Infection History false Thalassemia (Armenian, Portuguese, Mediterranean, Or Background): MCV < 80 false Patient Or Baby's Father Had A Child With Defects Not Listed Above false Live With Someone With TB Or Exposed To TB false Patient's Age Will Be 35 Years Or Older At Estim ated Date of Delivery false Recurrent Loss, Or A Stillbirth false Hemoglobinopathy Or Carrier false Patient Or Partner Has History Of Genital Herpes false Intellectual Disability/Autism false Maternal Metabolic Disorder (eg, Type 1 Diabetes , PKU) false History of Hepatitis false Boston-Sachs (eg, Restorationist, Cajun, Beninese-Slovenian) f alse History Of STD, Gonorrhea, Chlamydia, HPV, Syphi lis false Prior GBS-infected child false History of HIV false Personal or Family History o f Neural Tube Defect (Meningomyelocele, Spina Bifida, Or Anencephaly) false Hemophilia Or Other Blood Disorders false Mental Retardation/Autism false Jackson's Chorea false If Yes, Was Person Tested For Fragile X? false Other Inherited Genetic Or Chromosomal Disorder false If Yes, Agent(s) And Strength/Dosage false Sickle Cell Disease Or Trait () false Personal or Family History of Congenital Heart D efect false Rash Or Viral Illness Since Last Menstrual Perio d false Muscular Dystrophy false Medications (including Suppl ements, Vitamins, Herbs, OTC Drugs), Illicit/Recreational Drugs, Alcohol false Other Structural Defect false Down Syndrome false Delivery Information Delivery Date Delivery Type Labor Anesthesia Weeks Gestation Incision Type Labor Labor Length Hrs Delivered By Post Complications Tubal Sterilization Discharge Date Comments Discharge Information Feeding Method Contraceptive Method Maternal HG B and HCT Levels Ob Episode Information Episode Created Date Number of Fetuses Patient Bloodtype Patient rh Status Prepregnancy Weight lbs Domestic Partner Domestic Partner Phone Father Name Video Game Programmer Status 01/25/20 21 1 CLOSED Fetus Data First Name Last Name Admitted to NICU Weight (g) Sex Living Outcome Pediatric Complications Fetus ID Race Codes Race Delivery Type 3572.03 7 M Full Term [id number] Jonathan Calculation Initial Jonathan Date Initial Exam Date Initial Exam Provider Initial Ultrasound Date Last Menstrual Period Date Ultra Sound Weeks Gestation 0 Eighteen To Twenty Week Jonathan Update Ultra Sound Date Fundal Height At Umbil Quickening Date Ultra Sound Latest Weeks Gestation Final Jonathan Confirmed By Final Jonathan Confirmed Date Final Jonathan Date Ultra Sound Latest Days Gestation 0 0 Menstrual History Last Menstrual Date Menses Monthly On Bcp Conception Prior Menses Frequency Hcg Plus Date Menarche Onset Age Delivery Information Delivery Date Delivery Type Labor Anesthesia Weeks Gestation Incision Type Labor Labor Length Hrs Delivered By Post Complications Tubal Sterilization Discharge Date Comments 8 38.1 Discharge Information Feeding Method Contraceptive Method Maternal HG B and HCT Levels Ob Episode Information Episode Created Date Number of Fetuses Patient Bloodtype Patient rh Status Prepregnancy Weight lbs Domestic Partner Domestic Partner Phone Father Name Video Game Programmer Status 12/10/19 23 1 O Positive OPEN Fetus Data First Name Last Name Admitted to NICU Weight (g) Sex Living Outcome Pediatric Complications Fetus ID Race Codes Race Delivery Type [id number] Problems Problem Notes Problem Name Start Date End Date Resolution Snomed Code Not e Low lying placenta [id number] Jonathan Calculation Initial Jonathan Date Initial Exam Date Initial Exam Provider Initial Ultrasound Date Last Menstrual Period Date Ultra Sound Weeks Gestation 06/29/2023 12/09/2022 11/15/2022 09/20/2022 0 Eighteen To Twenty Week Jonathan Update Ultra Sound Date Fundal Height At Umbil Quickening Date Ultra Sound Latest Weeks Gestation Final Jonathan Confirmed By Final Jonathan Confirmed Date Final Jonathan Date Ultra Sound Latest Days Gestation 0 06/27/19 24 0 Pre-ivan Flowsheet Flowsheet Date 12/13/2022 Choi Score Blood Edema Fundus Height Fundus Units Glucose Ketones Leukocytes Nitrite Labor Signs Protein Cervic Dilation Cervic Effacement Cervic Station none none none neg Type Weight in lbs Pre/Post Dialysis Refused With clothes 145.331764442902 BP Diastolic BP Location Tested BP Systolic BP Type 76 R arm 122 sitting Fetus Heart Rate Present A 145 Fetus Movement A No Comments No complaints. Nausea better . Routine labs today. Desires genetic screening. 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 Can't do that this due to being on a tight budget. PNV daily. Flowsheet Date 01/09/2023 Choi Score Blood Edema Fundus Height Fundus Units Glucose Ketones Leukocytes Nitrite Labor Signs Protein Cervic Dilation Cervic Effacement Cervic Station Type Weight in lbs Pre/Post Dialysis Refused Weight 149.654578897534 BP Diastolic BP Location Tested BP Systolic BP Type 62 116 Fetus Heart Rate Present A 143 Fetus Movement A Yes Comments MSAFP today. Denies question s or concerns. Plan anatomy at [facility]. Flowsheet Date 02/07/2023 Choi Score Blood Edema Fundus Height Fundus Units Glucose Ketones Leukocytes Nitrite Labor Signs Protein Cervic Dilation Cervic Effacement Cervic Station 21 cm Type Weight in lbs Pre/Post Dialysis Refused Weight 158.900363440595 BP Diastolic BP Location Tested BP Systolic BP Type 68 124 Fetus Heart Rate Present A 139 Fetus Movement A Yes Comments Anatomy incomplete at [facility]. H as followup scheduled in 4 weeks. Discussed LLP. PTL/PIH precautions reviewed. Flowsheet Date 03/08/2023 Choi Score Blood Edema Fundus Height Fundus Units Glucose Ketones Leukocytes Nitrite Labor Signs Protein Cervic Dilation Cervic Effacement Cervic Station none 24 cm Type Weight in lbs Pre/Post Dialysis Refused BP Diastolic BP Location Tested BP Systolic BP Type 70 120 Fetus Heart Rate Present A 154 Fetus Movement A Yes Comments Anatomy complete at [facility] per patient. States placenta is no longer low lying. Awaiting report. PTL/PIH precautions reviewed. Discussed third trimester labs next visit. Flowsheet Date 04/03/2023 Choi Score Blood Edema Fundus Height Fundus Units Glucose Ketones Leukocytes Nitrite Labor Signs Protein Cervic Dilation Cervic Effacement Cervic Station none 28 cm Type Weight in lbs Pre/Post Dialysis Refused Weight 171.744940492980 BP Diastolic BP Location Tested BP Systolic BP Type 66 124 Fetus Heart Rate Present A 145 Fetus Movement A Yes Comments Denies questions or concerns . Third trimester labs today. Tdap, flu, and rsv recommendations given. PTL/PIH precautions reviewed. Menstrual History Last Menstrual Date Menses Monthly On Bcp Conception Prior Menses Frequency Hcg Plus Date Menarche Onset Age 0709/20/2022 Genetic Screening And Infection History Question Response Note Thalassemia (Armenian, Portuguese, Mediterranean, Or Background): MCV < 80 false Intellectual Disability/Autism false Personal or Family History of Congenital Heart D efect false History of Hepatitis false Muscular Dystrophy false Sickle Cell Disease Or Trait () false Patient Or Partner Has History Of Genital Herpes false Hemophilia Or Other Blood Disorders false Paresh Disease false Patient's Age Will Be 35 Years Or Older At Estim ated Date of Delivery false If Yes, Agent(s) And Strength/Dosage false Medications (including Suppl ements, Vitamins, Herbs, OTC Drugs), Illicit/Recreational Drugs, Alcohol false Other Structural Defect false Recent Travel History Outside of Country false Maternal Metabolic Disorder (eg, Type 1 Diabetes , PKU) false Boston-Sachs (eg, Restorationist, Cajun, Beninese-Slovenian) f alse Other Infection History false Jackson's Chorea false Cystic Fibrosis false Recurrent Loss, Or A Stillbirth false Rash Or Viral Illness Since Last Menstrual Perio d false Live With Someone With TB Or Exposed To TB false Mental Retardation/Autism false If Yes, Was Person Tested For Fragile X? false History of HIV false Any Other Genetic History false Hemoglobinopathy Or Carrier false Prior GBS-infected child false Down Syndrome false Other Inherited Genetic Or Chromosomal Disorder false Patient Or Baby's Father Had A Child With Defects Not Listed Above false Personal or Family History o f Neural Tube Defect (Meningomyelocele, Spina Bifida, Or Anencephaly) false History Of STD, Gonorrhea, Chlamydia, HPV, Syphi lis false Delivery Information Delivery Date Delivery Type Labor Anesthesia Weeks Gestation Incision Type Labor Labor Length Hrs Delivered By Post Complications Tubal Sterilization Discharge Date Comments Discharge Information Feeding Method Contraceptive Method Maternal HG B and HCT Levels
--- OUTSIDE RECORDS SUMMARY | 2024-05-15 17:59 | XMS_ITS | Clinical Summary ---
Author Organization [facility] Address [address] [place] [address] Care Team Providers Care Machine Stemmer Name Role Phone A, Unknown Practice Primary Care Provider [phone] Source Comments [facility],non-owned Affiliates and Associated Physician Practices is amultiple site organization consisting of ambulatory clinics and hospital sitesin [place], [place], [place] and [place]. This disclosure is being madepursuant to the Care Everywhere program and may not contain all information available regarding this patient. Last updated 17.[facility] Social History Tobacco Use Types Packs/Day Years Used Date Smoking Tobacco: Never Assessed Sex and Gender Information Value Date Recorded Sex Assigned at Not on file Gender Identity Not on file Sexual Orientation Not on file Plan of Treatment Health Maintenance Due Date Last Done Comments PAP SMEAR 1999 HIV SCREENING 2014 HPV VACCINE (1 - 3-dose series) 2014 CHLAMYDIA/GONORRHEA SCREENING 2015 HEPATITIS C SCREENING 02/17/2017 DTAP/TDAP/TD VACCINES (1 - Tdap) 2018 HEPATITIS B VACCINE (1 of 3 - 19+ 3-dose series) 2018 COVID-19 VACCINE ( - 2023-2 5 season) 2023 INFLUENZA VACCINE (#1) 2023 DEPRESSION SCREENING 03/06/2024 ZOSTER VACCINE (1 of 2) 2049 HIB VACCINE Aged Out No longer eligi ble based on patient's age to complete this topic MENINGOCOCCAL (Group B) VACC INE SHARED DECISION-MAKING Aged Out No longer eligibl e based on patient's age to complete this topic MENINGOCOCCAL GROUPS A/C/Y/W VACCINE Aged Out No longer eligible b ased on patient's age to complete this topic PNEUMOCOCCAL VACCINE Aged Out No long er eligible based on patient's age to complete this topic Care Teams Machine Stemmer Relationship Specialty Start Date End Date A, Unknown Practice [address] [place] [address] PCP - General 02/06/23
--- OUTSIDE RECORDS SUMMARY | 2024-05-15 17:59 | XMS_ITS | Clinical Summary ---
Author Organization [address] Address [address] [place] [address] Care Team Providers Care Wagon Driller Name Role Phone Mariaelena Torres MD Unavailable [phone] No, Physician Primary Care Provider [phone] Allergies No known active allergies Medications 99-hjyi-rwbhgh 6-dha 30 mg iron-1mg -200 mg capsule Take 1 tablet by mouth daily Active ferrous fumarate 325 mg (106 mg iron) tablet Take 1 tablet (325 mg total) by mouth daily with breakfast Active Active Problems No known active problems Family History Relation Name Status Comments Father Alive Mother Alive Social History Tobacco Use Types Packs/Day Years [...] on file Legal Sex Female 8:52 PM BUILDING CARPENTER HELPER Gender Identity Not on file Sexual Orientation Not on file Obstetrics History Para Term AB IAB SAB Ectopic Multiple Livin g Live Births 3 2 2 2 2 Date Outcome GA Total Labor Labor/2nd/3rd Weight Sex Type Anes PTL Peggy A1 A5 Name Clin 2017 Term 38w 0d Living 2021 Term 39w 0d Vaginal Living Last Filed Vital Signs Vital Sign Reading Time Taken Comments Blood Pressure 134/69 04/18/2023 7:40 PM BUILDING CARPENTER HELPER Pulse 83 04/18/2023 7:40 PM BUILDING CARPENTER HELPER Temperature 36.9 C (98.4 F) 04/18/2023 7:40 PM BUILDING CARPENTER HELPER Respiratory Rate 18 04/18/2023 7:40 PM BUILDING CARPENTER HELPER Oxygen Saturation 98% 04/18/2023 6:38 PM BUILDING CARPENTER HELPER Inhaled Oxygen Concentration - - Weight 66.2 kg (146 lb) 2019 12:34 PM BUILDING CARPENTER HELPER Height 157.5 cm (5' 2 ) 2019 12:34 PM BUILDING CARPENTER HELPER Body Mass Index 26.7 2019 12:34 PM BUILDING CARPENTER HELPER Plan of Treatment Health Maintenance Due Date Last Done Comments Cervical Cancer Screening 1999 Depression Screening 1999 Hepatitis C Screening 1999 Pneumococcal vaccine <65 (1 of 1 - PPSV23) 2005 1999 HPV Vaccines (1 - 3-dose series) 2014 Regular Well Visit/Exam 18-64 2017 DTaP/Tdap/Td Vaccine (7 - Td or Tdap) 08/24/2020 08/24/2010, 11/23/2004, 12/17/2001, Additional history exists Influenza Vaccine (#1) 2023 01/05/2018 Hepatitis B Screening Completed 08/24/2010 , 03/09/2010, 01/19/2010 Varicella Vaccines Completed 01/07/2014, 12/17/2001 Insurance Brand [employer] Care Teams Wagon Driller Relationship Specialty Start Date End Date No, Physician PCP - General 04/18/23 Mariaelena Torres MD [address] [place] [address] [phone] Consulting Physician Family Medicine 02/21/19
--- NOTE | 2024-05-15 19:29 | ED_ITS ---
HPI - Back Pain/Injury General Chief Complaint: Back Pain/Injury Stated Complaint: upper back, chest, jaw pain Time Seen by Provider: 05/15/24 19:28 Source: patient Mode of arrival: ambulatory Limitations: no limitations History of Present Illness HPI Narrative: This is a 24-year-old female who presents to the ED for chief complaint of back pain for 1 week and chest pain starting yesterday. States that she started to have some radiating pain into her jaw today which made her concerned that it could be her heart. States that she has family history of heart issues with her grandmother and this caused her to become very stressed about her pain today. States that she does have some pleuritic-type pain with left-sided chest pain. She notices that sometimes the pain in the back can be positional. States that she has 3 young children at home and is constantly caring her baby, which made her think that her back pain could be more muscular. States that she is very stressed and has been checking her blood pressure. Denies history of VTE, estrogen use, recent hospitalization or immobilization. Denies fevers, chills, cough, exertional pain or syncope. Related Data Allergies Allergy/AdvReac Type Severity Reaction Status Date / Time No Known Allergies Allergy Verified 05/15/24 17:05 Review of Systems 2 Review of Systems: All systems as dictated in [facility] Past Medical History Medical History No pertinent past medical history Surgical History Surgical History No pertinent past surgical history Family History Family History Mother Family history non-contributory Social History Social History Substance use: never Living arrangements: with family Gender identity (if verbalized by the patient): Female Sexual Orientation (if Verbalized by the Patient): Straight or Heterosexual Exam 2 Narrative: GENERAL: Mildly anxious. Intermittently tearful during interview and exam. HEAD: Normocephalic, atraumatic. EYES: PERRLA and EOMI. ENT: Nares clear, no rhinorrhea or epistaxis. Mucous membranes moist. Oropharynx without tonsillar hypertrophy exudate or other lesions. NECK: Supple. No adenopathy or masses. CHEST: No respiratory distress. Clear to auscultation. No wheezes rales or rhonchi HEART: Regular rate and rhythm. No murmur heard. Normal peripheral pulses. ABDOMEN: Soft, nontender, nondistended, normal active bowel sounds. MSK: Normal range of motion. No edema. SKIN: Warm, dry, no rash. NEURO: Alert and oriented x4. No focal deficits. PSYCH: Normal mood and affect. Course Vital Signs Vital signs: Vital Signs Temperature 97.6 F 05/15/24 17:06 Pulse Rate 77 05/15/24 17:06 Respiratory Rate 18 05/15/24 17:06 Blood Pressure 161/89 H 05/15/24 17:06 Pulse Oximetry 99 05/15/24 17:06 Oxygen Delivery Room Air 05/15/24 17:06 Temperature 97.6 F 05/15/24 17:06 Pulse Rate 84 05/15/24 21:52 Respiratory Rate 18 05/15/24 21:52 Blood Pressure 130/64 05/15/24 21:52 Pulse Oximetry 100 05/15/24 21:52 Oxygen Delivery Room Air 05/15/24 17:06 MDM - Back Pain/Injury MDM Narrative Medical decision making narrative: This is a 24-year-old female who presents to the ED for chief complaint of chest pain, upper back pain jaw pain. Vitals are normal. Exam is unremarkable. She does appear anxious and is intermittently tearful. EKG shows sinus rhythm with no acute ischemia. Lab work is unremarkable overall. Troponin is negative. D-dimer negative. Presentation consistent with musculoskeletal chest pain. She was given Tylenol and Advil here with good relief symptoms. Patient will be discharged in stable condition. Supportive measures discussed and return precautions given. Patient is understanding and agreeable with plan for discharge with PCP follow-up. Lab Data 05/15/24 20:24 05/15/24 20:24 Labs: Lab Results 05/15/24 05/15/24 Range/Units 20:24 20:24 WBC 8.2 (4.5-10.0) K/mm3 RBC 4.46 (4.2-5.4) M/mm3 Hgb 12.8 (12.0-15.0) g/dL Hct 38.4 (37.0-47.0) % MCV 86.1 (80-100) fl MCH 28.7 (26-34) pg MCHC 33.3 (32-36) g/dl RDW 13.1 (11.5-14.5) % Plt Count 273 (150-375) k/mm3 MPV 10.6 H (7.4-10.4) fl Immature Gran % (Auto) 0.1 (0-0.5) % Neut % (Auto) 54.8 (45.5-73.1) % Lymph % (Auto) 38.8 (18.3-44.2) % Crane % (Auto) 5.1 (2.6-8.5) % Eos % (Auto) 1.0 (0-4.4) % Baso % (Auto) 0.2 (0.2-1.2) % Lymph # (Auto) 3.19 (0.9-3.2) K/mm3 Crane # (Auto) 0.4 (0.1-0.6) K/mm3 Eos # (Auto) 0.1 (0-0.3) K/mm3 Baso # (Auto) 0.0 (0.0-0.1) K/mm3 Abs Immat Gran (auto) 0.01 (0.00-0.031) K/mm3 Absolute Neuts (auto) 4.5 (1.3-6.7) K/mm3 Absolute Nucleated RBC 0.000 (0.0-0.012) K/mm3 Nucleated RBC % 0.0 (0.0-0.2) % PT 13.2 (11.1-14.7) Seconds INR 1.0 APTT 29.6 (22.3-36.8) Seconds D-Dimer < 0.27 Cancelled (<0.48) ug/mL Sodium 142 (137-145) mmol/L Potassium 3.9 (3.4-5.0) mmol/L Chloride 106 (98-107) mmol/L Carbon Dioxide 24 (22-30) mmol/L Anion Gap 12 (4-12) mmol/L BUN 13 (7-17) mg/dL Creatinine 0.53 L (0.7-1.0) mg/dL Estim Creat Clear Calc 128 ml/min Estimated GFR > 60 (59 - ) Glucose 93 (65-110) mg/dL Calcium 9.5 (8.4-10.2) mg/dL Troponin I < 0.012 (0.000-0.034) ng/mL NT-Pro-B Natriuret Pep 27 (19.9-100) pg/mL Lipase 86 (23-300) U/L Discharge Plan Discharge Clinical Impression: Chest pain, pleuritic Patient Disposition: Home, Self-Care Condition: Stable Instructions: Antibiotic Form Additional Instructions: Exam and imaging today are reassuring overall. This is probably a musculoskeletal cause of her pain and should resolve on its own. Please take ibuprofen 600 mg every 6-8 hours as needed for pain. Follow-up with PCP this week. If you have any new or worsening symptoms please return to the ER for further evaluation. Patient Language: Occitan Prescriptions: No Action amoxicillin 875 mg tablet 875 mg PO Q12H Qty: 20 0RF Follow-up/Referrals: PHYSICIAN,OPERATING ROOM SCHEDULER [Primary Care Provider] - Time of Disposition: 21:15 Quality HEART score for chest pain patients History: slightly suspicious ECG: normal Age: < or = to 45 years Risk factors: no risk factors known Troponin: < or = to 1x normal limit Heart score: 0
--- NOTE | 2024-05-15 19:43 | ECG_ITS ---
Test Date: 2024-05-15 20:03:49 Measurements Intervals [place] Rate: 68 P: 47 TX: 159 QRS: 9 QRSD: 90 T: 23 QT: 388 QTc: 415 Interpretive Statements SINUS RHYTHM WITH SINUS ARRHYTHMIA No previous ECG available for comparison Electronically Signed On 05-16-2024 14:01:10 CDT by Richard Duvall M.D.
--- OUTSIDE RECORDS SUMMARY | 2024-05-15 19:46 | XMS_ITS | Referral Summary ---
Author Organization [address] Address [address] [place] [id number] Care Team Providers Care General Education Instructor Name Role Phone Mariaelena Torres MD Unavailable [phone] No, Physician Primary Care Provider [phone] Allergies No known active allergies Medications 80-schi-qyozxn 6-dha 30 mg iron-1mg -200 mg capsule [...] on file Legal Sex Female 8:52 PM CREAM MAKER Gender Identity Not on file Sexual Orientation Not on file Last Filed Vital Signs Vital Sign Reading Time Taken Comments Blood Pressure 134/69 04/18/2023 7:40 PM CREAM MAKER Pulse 83 04/18/2023 7:40 PM CREAM MAKER Temperature 36.9 C (98.4 F) 04/18/2023 7:40 PM CREAM MAKER Respiratory Rate 18 04/18/2023 7:40 PM CREAM MAKER Oxygen Saturation 98% 04/18/2023 6:38 PM CREAM MAKER Inhaled Oxygen Concentration - - Weight 66.2 kg (146 lb) 2019 12:34 PM CREAM MAKER Height 157.5 cm (5' 2 ) 2019 12:34 PM CREAM MAKER Body Mass Index 26.7 2019 12:34 PM CREAM MAKER Plan of Treatment Not on file Insurance [employer] Care Teams General Education Instructor Relationship Specialty Start Date End Date No, Physician PCP - General 04/18/23 Mariaelena Torres MD [address] [place] [address] Consulting Physician Family Medicine 02/21/19
--- OUTSIDE RECORDS SUMMARY | 2024-05-15 19:46 | XMS_ITS | Referral Summary ---
Author Organization [facility] Address [address] [place] [address] Care Team Providers Care Boomboat Operator Name Role Phone A, Unknown Practice Primary Care Provider [phone] Source Comments [facility],non-owned Affiliates and Associated Physician Practices is amultiple site organization consisting of ambulatory clinics and hospital sitesin [place], [place], [place] and [place]. This disclosure is being madepursuant to the Care Everywhere program and may not contain all information available regarding this patient. Last updated 17.[facility] Social History Tobacco Use Types Packs/Day Years Used Date Smoking Tobacco: Never Assessed Sex and Gender Information Value Date Recorded Sex Assigned at Not on file Gender Identity Not on file Sexual Orientation Not on file Plan of Treatment Not on file Care Teams Boomboat Operator Relationship Specialty Start Date End Date A, Unknown Practice [address] [place] [id number] PCP - General 02/06/23
--- OUTSIDE RECORDS SUMMARY | 2024-05-15 19:46 | XMS_ITS | Patient Health Summary ---
Author Organization [facility] Link To Media Address [address] [place] [address] Care Team Providers Care Musical Therapist Name Role Phone A, Unknown Practice Primary Care Provider [phone] Note from [facility] [place] [facility] [place]non-owned Affiliates and Associated Physician Practices is amultiple site organization consisting of ambulatory clinics and hospital sitesin [place], [place], [place] and [place]. This disclosure is being madepursuant to the Care Everywhere program and may not contain all information available regarding this patient. Last updated 17.[facility] Social History Tobacco Use Types Packs/Day Years Used Date Smoking Tobacco: Never Assessed Sex and Gender Information Value Date Recorded Sex Assigned at Not on file Gender Identity Not on file Sexual Orientation Not on file Procedures * SONOGRAM - COMPLETE(Performed 03/07/2023) Performed for Third (HCC), 24 weeks gestation of ([facility]), Encounter for follow-upultrasound of anatomy ([facility]) * SONOGRAM - COMPLETE(Performed 02/06/2023) Performed for Third (HCC), Encounter for anatomic survey ([facility]), 20 weeks gestation of ([facility]) Results * SONOGRAM - COMPLETE (03/07/2023 1:48 PM TABLEAU DEVELOPER) Only the most recent of2 resultswithin the time period is included. Anatomical Region Laterality Modality Other 03/07/2023 1:48 PM TABLEAU DEVELOPER Narrative 03/07/2023 2:39 PM TABLEAU DEVELOPER [facility] [place] PHONE: FAX: Pat. Name: DARIANA LYON. No: [id number] Study Date: 03/07/2023 1:48pm , Age: 11 2000, 23 Pregnancies: 3, Para 2 Height: 62 in Weight: 149 lb LMP: 09/20/2022 GA by LMP: 24w0d GA by Base: 24w0d PAMELA: 06/27/2023 GA by US: 23w0d APMELA: 07/04/2023 GA Selected: 24w0d (LMP) PAMELA: 06/27/2023 Referring MD: Prashanth Cifuentes MD Gifted Teacher: Na Galarza, [facility], [facility] CPT4: 75545,41569 BMI: 27.25 Hist/Ind: Incomplete Anatomic Survey NIPT: low risk (female) Short interval MEASUREMENTS & AGE GROWTH EVALUATION Measurement GA Range Srce %for GA Ratios ----- ---- ------- BPD 5.5 cm 22w6d ([id number]) Hadl BPD 9% FL/BPD 0.75 (0.71 - 0.87) HC 21.0 cm 23w1d (84r6q-53b6f) Hadl HC 8% FL/AC 0.21 (0.20 - 0.24) AC 19.6 cm 24w2d (16q7d-11e0i) Hadl AC 50% HC/AC 1.07 (1.02 - 1.21) FL 4.1 cm 23w3d (99t3o-85k9r) Hadl FL 20% CI 0.73 (0.70 - 0.86) HL 3.9 cm 23w6d (72h7i-22f7l) Marc HL 47% GA for sonogram 23w0d (94o3l-60l5r) Weight Estimate: based on (BPD,HC,AC,FL) [place] Weight: [...] 03/07/2023 02:39pm Kisha FUENTES ORDERABLES Care Teams Musical Therapist Relationship Specialty Start Date End Date A, Unknown Practice [address] [place] [address] PCP - General 02/06/23
--- OUTSIDE RECORDS SUMMARY | 2024-05-15 19:46 | XMS_ITS | Clinical Summary ---
Author Organization [facility] Address [address] [place] [address] Care Team Providers Care Tallow Refiner Name Role Phone A, Unknown Practice Primary Care Provider [phone] Source Comments [facility],non-owned Affiliates and Associated Physician Practices is amultiple site organization consisting of ambulatory clinics and hospital sitesin [place], [place], [place] and [place]. This disclosure is being madepursuant to the Care Everywhere program and may not contain all information available regarding this patient. Last updated 17.[facility] Social History Tobacco Use Types Packs/Day Years [...] age to complete this topic Care Teams Tallow Refiner Relationship Specialty Start Date End Date A, Unknown Practice [address] [place] [address] PCP - General 02/06/23
--- OUTSIDE RECORDS SUMMARY | 2024-05-15 19:46 | XMS_ITS | Clinical Summary ---
Author Organization [address] Address [address] [place] [id number] Care Team Providers Care Medical Record Librarians Teacher Name Role Phone Mariaelena Torres MD Unavailable [phone] No, Physician Primary Care Provider [phone] Allergies No known active allergies Medications 42-nhdk-tyvrza 6-dha 30 mg iron-1mg -200 mg capsule [...] on file Legal Sex Female 8:52 PM MARINE STEAMFITTER Gender Identity Not on file Sexual Orientation [...] Comments Blood Pressure 134/69 04/18/2023 7:40 PM MARINE STEAMFITTER Pulse 83 04/18/2023 7:40 PM MARINE STEAMFITTER Temperature 36.9 C (98.4 F) 04/18/2023 7:40 PM MARINE STEAMFITTER Respiratory Rate 18 04/18/2023 7:40 PM MARINE STEAMFITTER Oxygen Saturation 98% 04/18/2023 6:38 PM MARINE STEAMFITTER Inhaled Oxygen Concentration - - Weight 66.2 kg (146 lb) 2019 12:34 PM MARINE STEAMFITTER Height 157.5 cm (5' 2 ) 2019 12:34 PM MARINE STEAMFITTER Body Mass Index 26.7 2019 12:34 PM MARINE STEAMFITTER Plan of Treatment Health Maintenance Due Date [...] 01/19/2010 Varicella Vaccines Completed 01/07/2014, 12/17/2001 Insurance [employer] Care Teams Medical Record Librarians Teacher Relationship Specialty Start Date End Date No, Physician PCP - General 04/18/23 Mariaelena Torres MD [address] [place] [address] [phone] Consulting Physician Family Medicine 02/21/19
[2024-05-15 20:31] LABS: Basophils Percent Auto 0.2 % (0.2-1.2); Eosinophils Absolute Auto 0.1 K/mm3 (0-0.3); Hematocrit 38.4 % (37.0-47.0); Hemoglobin 12.8 g/dL (12.0-15.0); Immature Granulocyte Absolute 0.01 K/mm3 (0.00-0.031); Immature Granulocyte Percent A 0.1 % (0-0.5); Lymphocytes Absolute Auto 3.19 K/mm3 (0.9-3.2); Lymphocytes Percent Auto 38.8 % (18.3-44.2); Mean Corpuscular HGB Conc 33.3 g/dl (32-36); Mean Corpuscular Hemoglobin 28.7 pg (26-34); Mean Corpuscular Volume 86.1 fl (80-100); Mean Platelet Volume 10.6 fl (7.4-10.4); Monocytes Absolute Auto 0.4 K/mm3 (0.1-0.6); Monocytes Percent Auto 5.1 % (2.6-8.5); Neutrophils Absolute Auto 4.5 K/mm3 (1.3-6.7); Neutrophils Percent Auto 54.8 % (45.5-73.1); Platelet Count Result 273 k/mm3 (150-375); Red Blood Count 4.46 M/mm3 (4.2-5.4); Red Cell Distribution Width 13.1 % (11.5-14.5); White Blood Count 8.2 K/mm3 (4.5-10.0)
[2024-05-15 20:38] LABS: Anion Gap 12 mmol/L (4-12); Blood Urea Nitrogen 13 mg/dL (7-17); Calcium 9.5 mg/dL (8.4-10.2); Carbon Dioxide 24 mmol/L (22-30); Chloride 106 mmol/L (98-107); Estimated CRCL calculation 128 ml/min; Estimated Glomerular Filt Rate > 60; Glucose 93 mg/dL (65-110); Lipase 86 U/L (23-300); Potassium 3.9 mmol/L (3.4-5.0); Sodium 142 mmol/L (137-145)
[2024-05-15 20:43] LABS: Prothrombin Time 13.2 Seconds (11.1-14.7)
[2024-05-15 20:44] LABS: Partial Thromboplastin Time 29.6 Seconds (22.3-36.8)
[2024-05-15 20:49] LABS: D Dimer < 0.27 ug/mL (<0.48)
[2024-05-15 20:50] LABS: NT Pro B Type Natriuretic Pept 27 pg/mL (19.9-100); Troponin I < 0.012 ng/mL (0.000-0.034)
[2024-05-15] MEDS: IBUPROFEN 400 MG TABLET 800 MG PO (21:02)
[2024-05-15] MEDS: ACETAMINOPHEN 500 MG TABLET 1000 MG PO (21:02)
== END 2024-05-15 21:54 | disposition home or self-care (01) ==
PROVIDERS: Emergency Provider Physician Assistant
DX: R07.81 Pleurodynia (principal)
CPT/HCPCS: 36415; 71045; 80048; 83690; 83880; 84484; 85025; 85380; 85610; 85730; 93005; 99284; A9270